=== PATIENT | female | born 1940 | race Caucasian/White ===

== ENCOUNTER → 2017-06-27 | Outpatient (REF) | payer MEDICARE ==
[~2017-06-27] MED LIST: AMLO1TAB37 PO; ASPI81TA85 PO; ATOR1TAB21 PO; CALCTAB75 PO; CODE30TA3 PO; COUM2.5T17 PO; FURO40TA2 PO; LOTE10TA11 PO; LYRI75CA PO; MELO7.5T7 PO; META1TAB19 PO; METF500T13 PO; METO100T5 PO; PERC5TAB12 PO; TYLE325T5 PO; VITA200028 PO
[2017-06-27 11:29] LABS: ALBUMIN 3.8 GM/DL (3.2-5.2); ALBUMIN/GLOBULIN RATIO 1.09 (1.00-1.93); ALKALINE PHOSPHATASE 71 U/L (45-117); ALT/SGPT 24 U/L (12-78); ANION GAP 9 MEQ/L (8-16); AST/SGOT 13 U/L (15-37); BILIRUBIN,TOTAL 0.4 MG/DL (0.2-1.0); BLOOD UREA NITROGEN 15 MG/DL (7-18); CALCIUM LEVEL 9.1 MG/DL (8.8-10.2); CARBON DIOXIDE LEVEL 31 MEQ/L (21-32); CHLORIDE LEVEL 103 MEQ/L (98-107); CHOLESTEROL LEVEL 139 MG/DL (<200); CREATININE FOR GFR 0.78 MG/DL (0.55-1.02); GLOMERULAR FILTRATION RATE > 60.0 (>39); GLUCOSE, FASTING 94 MG/DL (83-110); POTASSIUM SERUM 4.5 MEQ/L (3.5-5.1); SODIUM LEVEL 143 MEQ/L (136-145); TOTAL PROTEIN 7.3 GM/DL (6.4-8.2); TRIGLYCERIDES LEVEL 246 MG/DL (<150)
== END ==
LOC: M SFHCPLAZ 09:22
PROVIDERS: ATTEND Nurse Practitioner Family
DX: E55.9 Vitamin D deficiency, unspecified (principal); I10 Essential (primary) hypertension; E11.9 Type 2 diabetes mellitus without complications; E78.2 Mixed hyperlipidemia

== ENCOUNTER 2017-09-28 11:03 | Emergency (ER) | payer MEDICARE ==
[~2017-09-28] VITALS: Ht 152.4 cm; Wt 81.8 kg
[2017-09-28] MEDS ORDERED: ALEV220C2 PO (11:13)
[2017-09-28] MEDS ORDERED: VITA20008 PO (11:13)
[2017-09-28 12:41] LABS: BASO # 0.1 10^3/uL (0.0-0.2); BASO % 0.4 % (0.0-1.0); EOS # 0.2 10^3/uL (0.0-0.50); EOS % 1.7 % (0.0-3.0); IMMATURE GRANULOCYTE % 0.4 % (0-0); LYMPH # 1.8 10^3/uL (1.5-4.5); LYMPH % 13.1 % (24.0-44.0); MEAN CORPUSCULAR HEMOGLOBIN 30.8 pg (27.0-33.0); MEAN CORPUSCULAR HGB CONC 33.2 g/dl (32.0-36.5); MEAN CORPUSCULAR VOLUME 92.8 fl (80.0-96.0); MONO # 1.2 10^3/uL (0.0-0.8); MONO % 8.6 % (0.0-5.0); NEUTROPHILS # 10.5 10^3/uL (1.8-7.7); NEUTROPHILS % 75.8 % (36.0-66.0); PLATELET COUNT, AUTOMATED 260 10^3/uL (150-450); RED CELL DISTRIBUTION WIDTH 13.3 % (11.5-14.5); WHITE BLOOD COUNT 13.8 10^3/uL (4.0-10.0)
[2017-09-28 12:57] LABS: INR 0.96
--- NOTE | 2017-09-28 13:00 | REP ---
Clinical: Postmenopausal bleeding. Technique: Transabdominal pelvic ultrasound. Findings: Anteverted uterus measures 7.5 x 2.6 x 3.4 cm the endometrial complex measures 2.8 mm and no discrete uterine or endometrial abnormalities identified. The ovaries are not visualized. No pelvic fluid or adnexal mass lesion. Impression: Limited transabdominal pelvic ultrasound without obvious abnormality. Signed by Cristopher Pino MD 09/28/2017 12:52 P
[2017-09-28 13:17] LABS: ALKALINE PHOSPHATASE 74 U/L (45-117); ALT/SGPT 19 U/L (12-78); ANION GAP 7 MEQ/L (8-16); AST/SGOT 12 U/L (7-37); BILIRUBIN,DIRECT 0.1 MG/DL (0.0-0.2); BILIRUBIN,TOTAL 0.4 MG/DL (0.2-1.0); BLOOD UREA NITROGEN 23 MG/DL (7-18); CALCIUM LEVEL 9.1 MG/DL (8.8-10.2); CARBON DIOXIDE LEVEL 29 MEQ/L (21-32); CHLORIDE LEVEL 104 MEQ/L (98-107); CREATININE FOR GFR 0.83 MG/DL (0.55-1.02); GLOMERULAR FILTRATION RATE > 60.0 (>39); GLUCOSE, FASTING 91 MG/DL (83-110); POTASSIUM SERUM 4.1 MEQ/L (3.5-5.1); SODIUM LEVEL 140 MEQ/L (136-145)
[2017-09-28 14:16] VITALS: BP 157/67
[2017-09-28] MEDS ORDERED: CIPR-249 PO (14:17)
[2017-10-03] MEDS ORDERED: BENA20TA8 PO (09:41)
== END 2017-09-28 14:28 | disposition home or self-care (01) ==
LOC: M ED 11:03
DX: N39.0 Urinary tract infection, site not specified (principal); R31.9 Hematuria, unspecified; N95.0 Postmenopausal bleeding; E11.9 Type 2 diabetes mellitus without complications; I10 Essential (primary) hypertension; E78.5 Hyperlipidemia, unspecified; M54.9 Dorsalgia, unspecified; M25.559 Pain in unspecified hip; Z79.899 Other long term (current) drug therapy; Z79.82 Long term (current) use of aspirin; Z88.2 Allergy status to sulfonamides; Z79.84 Long term (current) use of oral hypoglycemic drugs

== ENCOUNTER → 2017-10-03 | Outpatient (CLI) | payer MEDICARE ==
[~2017-10-03] MED LIST changes: +ALEV220C2 PO; +BENA20TA8 PO; +CIPR-249 PO; +VITA20008 PO
[2017-10-03 10:39] LABS: MEAN CORPUSCULAR HGB CONC 32.9 g/dl (32.0-36.5); MEAN CORPUSCULAR VOLUME 91.2 fl (80.0-96.0); PLATELET COUNT, AUTOMATED 285 10^3/uL (150-450); RED CELL DISTRIBUTION WIDTH 13.2 % (11.5-14.5); WHITE BLOOD COUNT 7.7 10^3/uL (4.0-10.0)
[2017-10-03 10:56] LABS: INR 0.99
[2017-10-03 11:01] LABS: ALBUMIN 4.1 GM/DL (3.2-5.2); ALBUMIN/GLOBULIN RATIO 1.14 (1.00-1.93); ALKALINE PHOSPHATASE 76 U/L (45-117); ALT/SGPT 19 U/L (12-78); ANION GAP 8 MEQ/L (8-16); AST/SGOT 13 U/L (7-37); BILIRUBIN,TOTAL 0.4 MG/DL (0.2-1.0); BLOOD UREA NITROGEN 21 MG/DL (7-18); CALCIUM LEVEL 8.9 MG/DL (8.8-10.2); CARBON DIOXIDE LEVEL 29 MEQ/L (21-32); CHLORIDE LEVEL 101 MEQ/L (98-107); CREATININE FOR GFR 0.93 MG/DL (0.55-1.02); GLOMERULAR FILTRATION RATE > 60.0 (>39); GLUCOSE, FASTING 93 MG/DL (83-110); POTASSIUM SERUM 4.5 MEQ/L (3.5-5.1); SODIUM LEVEL 138 MEQ/L (136-145); TOTAL PROTEIN 7.7 GM/DL (6.4-8.2)
[2017-10-03 11:35] LABS: ERYTHROCYTE SEDIMENTATION RATE 29 mm/hr (0-30)
--- NOTE | 2017-10-03 13:43 | REP ---
PA and lateral chest: Comparison is 11/30/2015. There is chronic interstitial coarsening compatible with chronic interstitial lung disease, unchanged. There are no acute infiltrates or effusions. There are no masses. Lung dvaid otherwise clear. Cardiac size is upper normal, unchanged. The rajendra, mediastinum, and bony thorax are unchanged. Impression: There are no acute cardiopulmonary findings. There is chronic interstitial coarsening compatible with chronic lung disease. No significant interval change. Signed by Chino Hernandez MD 10/03/2017 01:34 P
--- NOTE | 2017-10-04 09:19 | ECGEPIP ---
Stationary ECG Study [facility] Test Date: 2017-10-03 Pat Name: ANALILIA CHUA Department: Room: - Gender: F Lead Applier: YELENA : 1940 Requested By: Umang Salcedo Order Number: [id number] Reading MD: Kevin Cantor Measurements Intervals [place] Rate: 68 P: 24 [place]: 197 QRS: -2 QRSD: 93 T: 16 QT: 387 QTc: 412 Interpretive Statements Normal sinus rhythm. Prominent voltage in aVL suggestive of Left ventricular hypertrophy by Fabian criteria No change from 11/30/15 Electronically Signed On 10-04-2017 9:19:15 EST by Kevin Cantor
== END ==
LOC: M ADMPAT 09:27
PROVIDERS: ATTEND Orthopaedic Surgery
DX: Z01.818 Encounter for other preprocedural examination (principal); M17.11 Unilateral primary osteoarthritis, right knee; Z79.899 Other long term (current) drug therapy

== ENCOUNTER 2017-10-16 10:43 | Inpatient (IN) | payer MEDICARE ==
[2017-10-03 10:07] VITALS: BP 131/88
[~2017-10-16] VITALS: Ht 152.4 cm; Wt 80.3 kg
[2017-10-16] MEDS ORDERED: LR 1,000 ML IV ONE (11:00)
[2017-10-16] MEDS ORDERED: ACETAMINOPHEN 500 MG TAB PO ONE ×2 (11:00)
[2017-10-16] MEDS ORDERED: fentaNYL 100 MCG/2 ML INJECTION (J3010) As Ordered ONE (13:02)
[2017-10-16] MEDS ORDERED: MIDAZOLAM INJ 2 MG/2 ML VIAL (J2250) As Ordered ONE ×2 (13:02→15:01)
[2017-10-16] MEDS: fentaNYL 100 MCG/2 ML INJECTION (J3010) IV SCH ×2 (13:14→13:17)
[2017-10-16] MEDS: MIDAZOLAM INJ 2 MG/2 ML VIAL (J2250) IV SCH ×2 (13:14→13:17)
[2017-10-16] MEDS ORDERED: ceFAZolin 1GM INJ (J0690 PER 500MG) As Ordered ONE (13:25)
[2017-10-16] MEDS ORDERED: TRANEXAMIC ACID 100 MG/ML 10ML VIAL As Ordered ONE (13:25)
[2017-10-16] MEDS ORDERED: EPINEPHrine INJ 1 MG/ML 1ML AMP As Ordered ONE (13:25)
[2017-10-16] MEDS ORDERED: BUPIVACAINE LIPOSOME/PF 1.3% 20 ML VIAL (13.3MG/ML)(EXPAREL) As Ordered ONE (13:26)
[2017-10-16] MEDS ORDERED: LIDOCAINE 2% INJ 100 MG/5 ML SDV (FOR ANES.) As Ordered ONE (15:01)
[2017-10-16] MEDS ORDERED: PROPOFOL 200 MG/20 ML VIAL As Ordered ONE (15:01)
[2017-10-16] MEDS ORDERED: MORPHINE 1MG/ML IN 0.9% NACL 100ML IV BAG As Ordered ONE (15:45)
[2017-10-16] MEDS ORDERED: LR 1,000 ML IV SCH (16:30)
[2017-10-16] MEDS ORDERED: EPIDURAL/PCA KEYS XX PRN (16:30)
[2017-10-16] MEDS ORDERED: fentaNYL 100 MCG/2 ML INJECTION (J3010) IV PRN (16:30)
[2017-10-16] MEDS ORDERED: NALBUPHINE HCL 10 MG/ML AMP (J2300) IV PRN (16:30)
[2017-10-16] MEDS ORDERED: ONDANSETRON 4MG/2ML VIAL (J2405) IV PRN ×2 (16:30)
[2017-10-16] MEDS ORDERED: NALOXONE INJ 0.4 MG/1 ML VIAL (J2310) IV PRN (16:30)
[2017-10-16] MEDS ORDERED: FLEET ENEMA PR PRN (16:30)
[2017-10-16] MEDS ORDERED: MORPHINE 1MG/ML IN 0.9% NACL 100ML IV BAG IV PRN (16:30)
[2017-10-16] MEDS ORDERED: diphenhydrAMINE INJ 50MG/ML VIAL (J1200) IV PRN (16:30)
[2017-10-16 17:00] VITALS: BP 192/82
[2017-10-16] MEDS ORDERED: WARFARIN SOD 5 MG TAB PO ONE (17:00)
[2017-10-16 17:30] VITALS: BP 190/83
[2017-10-16] MEDS ORDERED: GLUCOSE 4 GM CHEW TABLET PO PRN (17:30)
[2017-10-16] MEDS ORDERED: DEXTROSE 50% 50 ML SYRINGE IV PRN (17:30)
[2017-10-16] MEDS ORDERED: GLUCAGON FOR INJ 1 MG VIAL (J1610) SC PRN (17:30)
[2017-10-16] MEDS: HumaLOG INSULIN (NovoLOG) PER UNIT SC SCH (17:30)
[2017-10-16 17:51] LABS: MEAN CORPUSCULAR HEMOGLOBIN 29.9 pg (27.0-33.0); MEAN CORPUSCULAR HGB CONC 32.4 g/dl (32.0-36.5); MEAN CORPUSCULAR VOLUME 92.3 fl (80.0-96.0); PLATELET COUNT, AUTOMATED 260 10^3/uL (150-450); RED CELL DISTRIBUTION WIDTH 13.6 % (11.5-14.5); WHITE BLOOD COUNT 9.5 10^3/uL (4.0-10.0)
--- NOTE | 2017-10-16 18:01 | CR.PDOC ---
[facility] Consultation Consultation Hospitalist Consult Note Date of Consultation: 10/16/2017 Reason for Consultation: Medical management of chronic medical issues Referring Provider: Dr. Matias Lowe PCP: Jennifer Kim & Dr. Gisela Kulkarni HISTORY OF PRESENT ILLNESS: Ms. Painting is a 77-year-old female who underwent an elective total right knee surgery earlier today. We have been consulted in regard to her chronic medical conditions as listed below. ALLERGIES: Sulfa antibiotics PAST MEDICAL HISTORY: Type 2 diabetes mellitus Osteoarthritis Rheumatoid arthritis Pulmonary fibrosis Fatty liver Left lung nodules 2 Hypertension Hyperlipidemia PAST SURGICAL HISTORY: Right hip replacement 2016 Total right knee 2017 (today) SOCIAL HISTORY: She does not smoke, drink, or use recreational drugs. FAMILY HISTORY: Her father had emphysema and lung damage from World War II gas exposure. Her mother had a heart attack, high blood pressure, and diabetes. She does have 1 sibling with Parkinson's, as well as siblings who had heart attack and COPD. she does have an uncle who had a stroke, and a niece who had breast cancer in her 60s. REVIEW OF SYSTEMS: Constitutional: Patient denies fevers, chills, night sweats, recent weight gain/ loss. HEENT: Patient denies blurred or double vision, transient visual disturbances, postnasal drip, epistaxis, sore throat, difficulty chewing or swallowing food. Cardiovascular: Patient denies chest discomfort/pain, palpitations, exertional dyspnea, orthopnea, edema of the extremities, claudication. Respiratory: Patient denies dyspnea, wheezing, cough, hemoptysis, sputum production. Gastrointestinal: Patient denies nausea, vomiting, diarrhea, constipation, abdominal pain, melena, hematochezia, hematemesis, jaundice. Musculoskeletal: Patient denies joint stiffness, pain, swelling Endocrine: Patient denies polyuria, polydipsia, polyphagia. PHYSICAL EXAMINATION: General: Awake, alert, oriented. She is in a pleasant mood. She is not in any pain at this time. HEENT: Head normocephalic atraumatic, pupils equally reactive to light and accommodation, conjunctiva are pink, sclera are nonicteric, buccal mucosa is pink and moist with no lesions in the oropharynx. Hearing is grossly intact to conversation. Respiratory: Clear to auscultation bilaterally with no wheezes, rales, or rhonchi. Cardiovascular: Regular rate and rhythm, with no rubs, gallops, or murmur. Abdomen: Soft, nontender, nondistended, no hepatosplenomegaly appreciated. Bowel sounds present. Extremities: 2+ pulses in the radial and dorsalis pedis bilaterally. No evidence of clubbing or cyanosis. ASSESSMENT: 1. s/p Right total knee replacement 2. Type 2 diabetes mellitus 3. Rheumatoid arthritis 4. Pulmonary fibrosis 5. Hypertension 6. Hyperlipidemia 7. DVT prophylaxis per recommendations from Ortho (warfarin) PLAN: During her inpatient hospitalization we will discontinue her metformin and continue with sliding scale insulin before meals and at bedtime. Her once daily Lasix and will be held for now, but we will continue with her usual home dose of amlodipine, atorvastatin, Benzapril, and metoprolol succinate. The patient does not wish to take her calcium or vitamin D at this time as it causes her an upset stomach, therefore these will be held as well. My preceptor for this patient encounter was physically present in the building during the encounter and was fully available. As needed, all aspects of the patient interview, examination, medical decision making process, and medical care plan development were reviewed and approved by the preceptor. Preceptor is aware and concurs with the plan as stated in the body of this note and will attest to such by his/her cosignature. Vital Signs/I&O Vital Signs Date Time Temp Pulse Resp B/P (MAP) Pulse Ox O2 Delivery O2 Flow Rate FiO2 10/16/17 16:30 96.6 53 16 145/67 (93) 98 Nasal Cannula 2 I&O- Last 24 Hours up to 6 AM 10/17/17 06:00 Intake Total 1100 ml Output Total 250 ml Balance 850 ml Laboratory Data CBC/BMP Laboratory Tests 10/16/17 11:11 Allergies Coded Allergies: Sulfa Antibiotics (Verified Allergy, Unknown, 10/16/17) Home Medications Scheduled (Aleve) 220 Mg Cap, 220 MG PO BID, (Reported) Atorvastatin Calcium (Atorvastatin Calcium) 20 Mg Tab, 20 MG PO QHS, (Reported) Benazepril HCl (Benazepril HCl) 20 Mg Tab, 20 MG PO QAM, (Reported) Calcium/Vitamin D (Calcium 500 +D 500-400 mg-Unit) 1 Tab Tab, 1 TAB PO DAILY, ( Reported) Cholecalciferol (Vitamin D3) 2,000 Unit Tab, 2,000 UNIT PO Q2D, (Reported) Ciprofloxacin HCl (Cipro) 500 Mg Tab, 500 MG PO BID, #14 Furosemide (Furosemide) 40 Mg Tab, 40 MG PO DAILY, (Reported) Metformin Hydrochloride (Metformin HCl) 500 Mg Tab, 1,000 MG PO BID, (Reported) OPAL SINGH DO Oct 16, 2017 16:47 ALLAN LOMELI MD Oct 16, 2017 18:26
[2017-10-16 18:23] LABS: ANION GAP 9 MEQ/L (8-16); BLOOD UREA NITROGEN 19 MG/DL (7-18); CALCIUM LEVEL 8.5 MG/DL (8.8-10.2); CARBON DIOXIDE LEVEL 25 MEQ/L (21-32); CHLORIDE LEVEL 108 MEQ/L (98-107); CHOLESTEROL LEVEL 181 MG/DL (<200); CREATININE FOR GFR 0.74 MG/DL (0.55-1.02); GLOMERULAR FILTRATION RATE > 60.0 (>39); GLUCOSE, FASTING 110 MG/DL (83-110); MAGNESIUM LEVEL 2.1 MG/DL (1.8-2.4); POTASSIUM SERUM 4.9 MEQ/L (3.5-5.1); SODIUM LEVEL 142 MEQ/L (136-145); TRIGLYCERIDES LEVEL 145 MG/DL (<150)
[2017-10-16] MEDS ORDERED: AMLO5TAB2 PO (18:27)
[2017-10-16] MEDS: amLODIPine 5 MG TAB PO SCH (18:27)
[2017-10-16] MEDS: LR 1,000 ML IV SCH (18:27)
[2017-10-16] MEDS ORDERED: METO1TAB33 PO (18:28)
[2017-10-16 18:30] VITALS: BP 184/79
[2017-10-16 19:30] VITALS: BP 163/80
[2017-10-16] MEDS: ATORVASTATIN 20 MG TAB PO SCH (20:19)
[2017-10-16 20:30] VITALS: BP 153/83
[2017-10-16] MEDS ORDERED: HumaLOG INSULIN (NovoLOG) PER UNIT SC SCH (21:00)
[2017-10-16 21:30] VITALS: BP 142/70
[2017-10-17] VITALS (7 sets, daily range): BP systolic 114–188; BP diastolic 58–78; O2SAT 96
[2017-10-17] MEDS: LR 1,000 ML IV SCH (05:00)
[2017-10-17] MEDS ORDERED: PERCOCET 5MG/325MG TAB PO PRN (06:45)
[2017-10-17 06:55] LABS: MEAN CORPUSCULAR HGB CONC 32.9 g/dl (32.0-36.5); PLATELET COUNT, AUTOMATED 264 10^3/uL (150-450); RED CELL DISTRIBUTION WIDTH 13.6 % (11.5-14.5); WHITE BLOOD COUNT 17.6 10^3/uL (4.0-10.0)
[2017-10-17 07:07] LABS: INR 1.15
[2017-10-17] MEDS: HumaLOG INSULIN (NovoLOG) PER UNIT SC SCH (07:26)
[2017-10-17 07:29] LABS: ANION GAP 10 MEQ/L (8-16); BLOOD UREA NITROGEN 20 MG/DL (7-18); CALCIUM LEVEL 8.5 MG/DL (8.8-10.2); CARBON DIOXIDE LEVEL 23 MEQ/L (21-32); CHLORIDE LEVEL 105 MEQ/L (98-107); CREATININE FOR GFR 0.82 MG/DL (0.55-1.02); GLOMERULAR FILTRATION RATE > 60.0 (>39); GLUCOSE, FASTING 147 MG/DL (83-110); POTASSIUM SERUM 4.6 MEQ/L (3.5-5.1); SODIUM LEVEL 138 MEQ/L (136-145)
[2017-10-17] MEDS: MIRALAX *UNIT DOSE* 17GM PACKET PO SCH (08:56)
[2017-10-17] MEDS: SENOKOT S TAB PO SCH ×2 (08:56→22:25)
[2017-10-17] MEDS: BENAZEPRIL 20 MG TAB PO SCH (08:56)
[2017-10-17] MEDS: MOM 30ML SUSPENSION UDC PO SCH (08:56)
[2017-10-17] MEDS: PERCOCET 5MG/325MG TAB PO PRN ×2 (08:57→16:02)
[2017-10-17] MEDS: amLODIPine 5 MG TAB PO SCH (08:57)
[2017-10-17] MEDS: METOPROLOL SUCC (TopROL XL) 100MG *XL* TAB PO SCH (08:58)
[2017-10-17] MEDS ORDERED: METOPROLOL TARTRATE 100 MG TAB PO SCH (09:00)
--- NOTE | 2017-10-17 09:31 | REP ---
RIGHT KNEE, TWO VIEWS: Two views of the right knee are performed. There is a total knee prosthesis which appears to be in good position. The structures are well aligned. Metallic skin joan are seen anteriorly. Signed by Chino Quinn MD 10/17/2017 05:21 P
--- NOTE | 2017-10-17 11:44 | RO ---
DATE OF PROCEDURE: 10/16/2017 PREPROCEDURE DIAGNOSIS: Right knee degenerative arthritis. POSTPROCEDURE DIAGNOSIS: Right knee degenerative arthritis. PROCEDURE: Right total knee arthroplasty using size 2.5 femoral component, size 2.5 tibial tray, with a 10 mm rotating plate form polyurethane insert and a 32 mm polyurethane button. Prostheses made by [employer], It is a PFC knee. All the components were cemented. SURGEON: Dr. Umang Lowe ELECTRICAL SYSTEM SPECIALIST: Konstantin Dc PA-C ANESTHESIA: Spinal with right femoral nerve block. SPECIMENS: Joint surfaces. ESTIMATED BLOOD LOSS: Less than 20 mL. TOURNIQUET TIME: 48 minutes. DESCRIPTION OF PROCEDURE: Antibiotics were given intravenously preoperatively then a successful right femoral nerve block and then spinal anesthetic was induced. A tourniquet was placed on the right upper thigh and not inflated. The right lower extremity was then carefully prepped in the usual sterile fashion and after an appropriate time out, was elevated and the tourniquet inflated to 150 mmHg. A longitudinal incision was made for a medial parapatellar approach in the knee. Bovie cautery was used to coagulate the crossing vessels. A subperiosteal dissection from the proximal medial and tibial plateau was performed and the patella was everted and the knee was flexed. The ACL was debrided. A drill placed down the center of the femoral canal, followed by the distal femoral cutting jig set at 5 degree valgus cut at 10 mm resection level for a right knee. The block was pinned into position. Distal femoral cut performed. AP sizing jig measured for a 2.5 sized femoral component. The 30 degree external rotation block was pinned in position followed by the 4-in-1 block and then the anterior and posterior chamfer cuts performed taking great care to protect the surrounding soft tissues. We exposed the proximal tibia. Used the extramedullary alignment jig to estimate being parallel to the mechanical axis referencing off the medial tibial condyle at 4 mm resection level. The block was pinned into position. Secondary check with the extramedullary garth confirmed they appeared to be in parallel to the mechanical axis. A proximal tibial osteotomy was then performed. Laminar spa coordinator was placed medially and then we performed a completion lateral meniscectomy debriding the posterior lateral osteophytes. Then placed the laminar spa coordinator laterally and performed a completion medial meniscectomy breading from the posteromedial osteophytes. The spacer block was quite tight both in flexion and extension at 10 mm. Thus, I elected to take an additional 2 mm off the proximal tibia by replacing the jig and performing the cut and removing excess bone debris and then irrigating copiously. Then the spacer bloc fit nicely with good symmetry and flexion/extension gaps both with varus and valgus, stress testing in flexion and in extension. We then exposed the proximal tibia size for a 2.5 tray, which was pinned into position followed by the reamer and broach, followed by the trial polyethylene and trial femoral component which fit nicely. I brought the knee into extension and everted the patella. I performed the patellar osteotomy size for a 32 button. The lug holes were drilled. The patella component trial was placed and the patellofemoral tracking was anatomic. We then drilled the lug holes for the femur, removed all the trial components. Exparel was injected into the periosteal and pericapsular tissues at this point. Then Mr. Mg mixed the cement on the back table as I prepared the bony surfaces for cementing with copious amount of pulsatile lavage irrigant solution. He was also critical to the success of the procedure by helping to close the wound and help to manipulate the knee and apply appropriate soft tissue retraction so that I could perform the operation smoothly and efficiently. After all the bony surfaces were cleared thoroughly and debrided, irrigated and dried, we cemented the tibial tray , removed excess cement, placed the polyethylene and cemented the femoral component, removed excess cement and brought the knee into extension and then everted the patella and cemented the patellar button and held it with a clamp till the cement hardened with the knee in extension. We copiously pulsatile lavaged and irrigated out the knee joint as we awaited for the cement to harden. Then applied tranexamic acid and began closing the arthrotomy apex with two #1 PDS sutures, the medial parapatellar areas was closed with interrupted #1-0 PDS suture, then a double-arm #1 Stratafix was used to run the capsule. Then the tourniquet was released. We copiously irrigated again and then closed the deep subdermal tissues with interrupted #2-0 PDS sutures. The skin was closed with joan covered by Adaptic, dry sterile bulky dressing. Then she was transferred to the recovery room in stable condition. There were no intraoperative complications.
--- NOTE | 2017-10-17 11:53 | IPNPDOC ---
Subjective Date Seen The patient was seen on 10/17/17. Subjective Chief Complaint/HPI The patient is a 77-year-old female admitted with a reason for visit of Right Knee Arthritis. Constitutional: Denies: Chills, Malaise, Night Sweats ENT: Denies: Head Aches, Dysphagia Skin: Denies: Rash Pulmonary: Denies: Dyspnea, Cough, Pleuritic Chest Pain Cardiovascular: Denies: Chest Pain, Palpitations Gastrointestinal: Denies: Nausea, Vomiting, Abdominal Pain Genitourinary: Denies: Dysuria Neurological: Denies: Weakness, Numbness, Change in speech Psych: Reports: Mood Normal Objective Physical Examination General Exam: Positive: Alert, Cooperative Eye Exam: Positive: PERRLA Neck Exam: Negative: thyromegaly, Lymphadenopathy Chest Exam: Positive: Clear to auscultation, Normal air movement, Negative: Rales, Rhonchi Heart Exam: Negative: Murmurs Abdomen Exam: Positive: Normal bowel sounds Extremity Exam: Negative: Clubbing, Cyanosis Skin Exam: Positive: Nl turgor and temperature Psych Exam: Positive: Mental status NL Assessment /Plan Problems (1) HTN (hypertension) Status: Chronic Response to Treatment: Stable Problem Text: she is back on her usual pre hospital meds, except for furosemide 40mg daily. she will likely need to have this agent added at discharge. (2) Diabetes mellitus, type 2 Status: Chronic Response to Treatment: Stable Problem Text: patient refusing SS coverage. so will d/c fingersticks and SS coverage and resume usual metformin. renal function is normal and she is taking po reliably (3) Status post total right knee replacement Status: Acute Response to Treatment: Stable Problem Text: management per Ortho Plan/VTE VTE Prophylaxis Ordered?: Yes Plan Anticipated Discharge: Home VS, I&O, 24H, Fishbone Vital Signs/I&O Vital Signs Date Time Temp Pulse Resp B/P (MAP) Pulse Ox O2 Delivery O2 Flow Rate FiO2 10/17/17 10:18 96 Room Air 10/17/17 10:00 97.9 63 17 167/78 (107) 10/17/17 06:00 2.0 I&O- Last 24 Hours up to 6 AM 10/18/17 06:00 Intake Total 400 ml Balance 400 ml Laboratory Data 24H LABS Laboratory Tests 2 10/16/17 17:35: Nucleated Red Blood Cells % (auto) 0.0, Anion Gap 9, Glomerular Filtration Rate > 60.0, Calcium Level 8.5L, Magnesium Level 2.1, Triglycerides Level 145, LDL Cholesterol 109.0H, Total Cholesterol 181, Non-HDL Cholesterol (LDL + VLDL) 138 , Total HDL Cholesterol 43, Cholesterol/HDL Ratio 4.209, Thyroid Stimulating Hormone (TSH) 0.603 10/16/17 20:40: Bedside Glucose (Misc Panel) 217H 10/17/17 06:44: Nucleated Red Blood Cells % (auto) 0.0, Anion Gap 10, Glomerular Filtration Rate > 60.0, Calcium Level 8.5L, Prothrombin Time 14.9H, Prothromb Time International Ratio 1.15, Estimated Mean Plasma Glucose 120H, Hemoglobin A1c 5.8 , Blood Urea Nitrogen 20H, Creatinine 0.82, Sodium Level 138, Potassium Level 4.6, Chloride Level 105, Carbon Dioxide Level 23 CBC/BMP Laboratory Tests 10/16/17 17:35 Red Blood Count 4.65, Mean Corpuscular Volume 92.3, Mean Corpuscular Hemoglobin 29.9, Mean Corpuscular Hemoglobin Concent 32.4, Red Cell Distribution Width 13.6 10/17/17 06:44 Red Blood Count 4.34, Mean Corpuscular Volume 91.0, Mean Corpuscular Hemoglobin 30.0, Mean Corpuscular Hemoglobin Concent 32.9, Red Cell Distribution Width 13.6 , Calcium Level 8.5 L Marco A Mcmahan MD Oct 17, 2017 11:53
[2017-10-17] MEDS: metFORMIN (GLUCOPHAGE) 1000 MG TABLET PO SCH ×2 (12:10→18:00)
[2017-10-17] MEDS ORDERED: WARFARIN SOD 5 MG TAB PO ONE (17:00)
[2017-10-17] MEDS: ONDANSETRON 4 MG TAB (S0181) PO PRN (20:54)
[2017-10-17] MEDS: ATORVASTATIN 20 MG TAB PO SCH (21:00)
[2017-10-17] MEDS: ACETAMINOPHEN TAB 650MG DOSE (2X325MG) PO PRN (22:25)
[2017-10-18 00:31] VITALS: O2SAT 93
[2017-10-18] MEDS: ACETAMINOPHEN TAB 650MG DOSE (2X325MG) PO PRN (01:59)
[2017-10-18 02:00] VITALS: BP 176/83
[2017-10-18 06:00] VITALS: BP 152/89
[2017-10-18 06:57] LABS: BASO % 0.2 % (0.0-1.0); EOS % 0.3 % (0.0-3.0); IMMATURE GRANULOCYTE % 0.5 % (0-0); LYMPH # 1.5 10^3/uL (1.5-4.5); LYMPH % 11.3 % (24.0-44.0); MEAN CORPUSCULAR HEMOGLOBIN 29.8 pg (27.0-33.0); MEAN CORPUSCULAR HGB CONC 32.8 g/dl (32.0-36.5); MEAN CORPUSCULAR VOLUME 90.8 fl (80.0-96.0); MONO # 1.8 10^3/uL (0.0-0.8); MONO % 13.9 % (0.0-5.0); NEUTROPHILS # 9.6 10^3/uL (1.8-7.7); NEUTROPHILS % 73.8 % (36.0-66.0); PLATELET COUNT, AUTOMATED 250 10^3/uL (150-450); WHITE BLOOD COUNT 13.1 10^3/uL (4.0-10.0)
[2017-10-18] MEDS: ONDANSETRON 4 MG TAB (S0181) PO PRN ×2 (07:04→17:43)
[2017-10-18] MEDS: traMADol 50 MG TAB PO PRN ×3 (07:05→20:30)
[2017-10-18 07:07] LABS: ANION GAP 9 MEQ/L (8-16); BLOOD UREA NITROGEN 13 MG/DL (7-18); CALCIUM LEVEL 8.9 MG/DL (8.8-10.2); CARBON DIOXIDE LEVEL 28 MEQ/L (21-32); CHLORIDE LEVEL 101 MEQ/L (98-107); CREATININE FOR GFR 0.76 MG/DL (0.55-1.02); GLOMERULAR FILTRATION RATE > 60.0 (>39); GLUCOSE, FASTING 123 MG/DL (83-110); POTASSIUM SERUM 4.3 MEQ/L (3.5-5.1); SODIUM LEVEL 138 MEQ/L (136-145)
[2017-10-18 07:08] LABS: INR 1.37
[2017-10-18] MEDS ORDERED: dexameTHASONE 10 MG/1 ML VIAL PRES.FREE (J1100) ONE (07:33)
[2017-10-18] MEDS ORDERED: ROPIvacaine 0.5% 30 ML INJECTION (J2795 PER 1MG) ONE (07:33)
[2017-10-18] MEDS ORDERED: TRAM50TA2 PO (08:52)
[2017-10-18] MEDS ORDERED: COUM2.5T17 PO (08:52)
[2017-10-18] MEDS ORDERED: VITAMIN D 1,000 INTERNATIONAL UNITS TABLET PO SCH (09:00)
[2017-10-18] MEDS: MOM 30ML SUSPENSION UDC PO SCH (10:37)
[2017-10-18] MEDS: MIRALAX *UNIT DOSE* 17GM PACKET PO SCH (10:38)
[2017-10-18] MEDS: METOPROLOL SUCC (TopROL XL) 100MG *XL* TAB PO SCH (10:39)
[2017-10-18] MEDS: amLODIPine 5 MG TAB PO SCH (10:39)
[2017-10-18] MEDS: metFORMIN (GLUCOPHAGE) 1000 MG TABLET PO SCH ×2 (10:39→17:43)
[2017-10-18] MEDS: BENAZEPRIL 20 MG TAB PO SCH (10:39)
[2017-10-18] MEDS: SENOKOT S TAB PO SCH ×2 (10:39→20:29)
--- NOTE | 2017-10-18 11:07 | IPNPDOC ---
Subjective Date Seen The patient was seen on 10/18/17. Subjective Chief Complaint/HPI The patient is a 77-year-old female admitted with a reason for visit of Right Knee Arthritis. Events since last encounter s/p pain in right knee. pain medications ordered prn by ortho service. denies other c/o Constitutional: Denies: Chills, Fever, Night Sweats Skin: Denies: Rash, Lesions, Breakdown Pulmonary: Denies: Dyspnea, Cough Cardiovascular: Denies: Chest Pain, Palpitations, Orthopnea, Paroxysmal Noc. Dyspnea, Lt Headedness Gastrointestinal: Denies: Nausea, Vomiting, Abdominal Pain, Diarrhea, Constipation, Melena, Hematochezia, Other Symptoms Genitourinary: Denies: Dysuria, Frequency, Incontinence, Hematuria, Retention, Other Symptoms Objective Physical Examination General Exam: Positive: Alert, Cooperative Eye Exam: Positive: PERRLA Neck Exam: Negative: thyromegaly, Lymphadenopathy Chest Exam: Positive: Clear to auscultation, Normal air movement, Negative: Rales, Rhonchi Heart Exam: Negative: Murmurs Abdomen Exam: Positive: Normal bowel sounds Extremity Exam: Negative: Clubbing, Cyanosis Skin Exam: Positive: Nl turgor and temperature Psych Exam: Positive: Mental status NL Assessment /Plan Problems (1) HTN (hypertension) Status: Chronic Response to Treatment: Stable Problem Text: : elevated BP noted. may be related to pain. Furosemide 40 mg daily restarted. monitor. she is back on her usual pre hospital meds, except for furosemide 40mg daily. she will likely need to have this agent added at discharge. (2) Diabetes mellitus, type 2 Status: Chronic Response to Treatment: Stable Problem Text: patient refusing SS coverage. so will d/c fingersticks and SS coverage and resume usual metformin. renal function is normal and she is taking po reliably (3) Status post total right knee replacement Status: Acute Response to Treatment: Stable Problem Text: management per Ortho Plan/VTE VTE Prophylaxis Ordered?: Yes Plan Anticipated Discharge: Home VS, I&O, 24H, Fishbone Vital Signs/I&O Vital Signs Date Time Temp Pulse Resp B/P (MAP) Pulse Ox O2 Delivery O2 Flow Rate FiO2 10/18/17 10:39 72 10/18/17 10:39 170/81 12/20/17 10:38 18 10/18/17 07:35 Room Air 10/18/17 06:00 99.4 98 10/18/17 00:31 1.0 I&O- Last 24 Hours up to 6 AM 10/18/17 06:00 Intake Total 820 ml Output Total 1150 ml Balance -330 ml Laboratory Data 24H LABS Laboratory Tests 2 10/18/17 06:35: Immature Granulocyte % (Auto) 0.5H, White Blood Count 13.1H, Red Blood Count 4.23, Hemoglobin 12.6, Hematocrit 38.4, Mean Corpuscular Volume 90.8, Mean Corpuscular Hemoglobin 29.8, Mean Corpuscular Hemoglobin Concent 32.8, Red Cell Distribution Width 14.0, Platelet Count 250, Neutrophils (%) (Auto) 73.8H, Lymphocytes (%) (Auto) 11.3L, Monocytes (%) (Auto) 13.9H, Eosinophils (%) (Auto ) 0.3, Basophils (%) (Auto) 0.2, Neutrophils # (Auto) 9.6H, Lymphocytes # (Auto ) 1.5, Monocytes # (Auto) 1.8H, Eosinophils # (Auto) 0.0, Basophils # (Auto) 0.0 , Immature Granulocyte # (Auto) 0.1H, Nucleated Red Blood Cells % (auto) 0.0, Prothrombin Time 17.2H, Prothromb Time International Ratio 1.37, Anion Gap 9, Glomerular Filtration Rate > 60.0, Blood Urea Nitrogen 13, Creatinine 0.76, Sodium Level 138, Potassium Level 4.3, Chloride Level 101, Carbon Dioxide Level 28, Calcium Level 8.9 CBC/BMP Laboratory Tests 10/18/17 06:35 Red Blood Count 4.23, Mean Corpuscular Volume 90.8, Mean Corpuscular Hemoglobin 29.8, Mean Corpuscular Hemoglobin Concent 32.8, Red Cell Distribution Width 14.0 , Neutrophils (%) (Auto) 73.8 H, Lymphocytes (%) (Auto) 11.3 L, Monocytes (%) ( Auto) 13.9 H, Eosinophils (%) (Auto) 0.3, Basophils (%) (Auto) 0.2, Neutrophils # (Auto) 9.6 H, Lymphocytes # (Auto) 1.5, Monocytes # (Auto) 1.8 H, Eosinophils # (Auto) 0.0, Basophils # (Auto) 0.0, Calcium Level 8.9 Cherri Hagen [facility] Oct 18, 2017 11:07
[2017-10-18] MEDS: FUROSEMIDE 40 MG TAB PO SCH (11:57)
[2017-10-18 14:00] VITALS: BP 132/61
[2017-10-18] MEDS ORDERED: WARFARIN SOD 7.5 MG TAB PO ONE (17:00)
[2017-10-18 20:00] VITALS: O2SAT 94
[2017-10-18] MEDS: ATORVASTATIN 20 MG TAB PO SCH (20:29)
[2017-10-18 22:00] VITALS: BP 152/64
[2017-10-19] MEDS: traMADol 50 MG TAB PO PRN (05:13)
[2017-10-19 06:00] VITALS: BP 178/70
[2017-10-19 07:12] LABS: MEAN CORPUSCULAR HEMOGLOBIN 30.2 pg (27.0-33.0); MEAN CORPUSCULAR HGB CONC 32.9 g/dl (32.0-36.5); MEAN CORPUSCULAR VOLUME 91.9 fl (80.0-96.0); PLATELET COUNT, AUTOMATED 239 10^3/uL (150-450); RED CELL DISTRIBUTION WIDTH 13.7 % (11.5-14.5); WHITE BLOOD COUNT 13.4 10^3/uL (4.0-10.0)
[2017-10-19 07:21] LABS: INR 1.43
[2017-10-19 07:27] LABS: ANION GAP 6 MEQ/L (8-16); BLOOD UREA NITROGEN 19 MG/DL (7-18); CALCIUM LEVEL 8.2 MG/DL (8.8-10.2); CARBON DIOXIDE LEVEL 30 MEQ/L (21-32); CHLORIDE LEVEL 98 MEQ/L (98-107); CREATININE FOR GFR 0.68 MG/DL (0.55-1.02); GLOMERULAR FILTRATION RATE > 60.0 (>39); GLUCOSE, FASTING 119 MG/DL (83-110); POTASSIUM SERUM 4.1 MEQ/L (3.5-5.1); SODIUM LEVEL 134 MEQ/L (136-145)
[2017-10-19] MEDS: MOM 30ML SUSPENSION UDC PO SCH (09:00)
[2017-10-19] MEDS: MIRALAX *UNIT DOSE* 17GM PACKET PO SCH (09:00)
[2017-10-19] MEDS: ACETAMINOPHEN TAB 650MG DOSE (2X325MG) PO PRN (09:58)
[2017-10-19 10:00] VITALS: BP 167/79
[2017-10-19] MEDS: metFORMIN (GLUCOPHAGE) 1000 MG TABLET PO SCH (10:00)
[2017-10-19] MEDS: BENAZEPRIL 20 MG TAB PO SCH (10:00)
[2017-10-19] MEDS: METOPROLOL SUCC (TopROL XL) 100MG *XL* TAB PO SCH (10:01)
[2017-10-19] MEDS: SENOKOT S TAB PO SCH (10:01)
[2017-10-19] MEDS: amLODIPine 5 MG TAB PO SCH (10:01)
[2017-10-19] MEDS: FUROSEMIDE 40 MG TAB PO SCH (10:01)
--- NOTE | 2017-10-24 10:13 | DSES ---
DATE OF ADMISSION: 10/16/2017 DATE OF DISCHARGE: 10/19/2107 HISTORY OF PRESENT ILLNESS: This is a pleasant female with continuing symptomatic right knee osteoarthritis. She consented for right total knee arthroplasty per Dr. Matias Lowe. Medical optimization was achieved per primary care. X-rays are consistent with advanced osteoarthritis. OPERATION PERFORMED: Right total knee arthroplasty. HOSPITAL COURSE: The patient uneventfully underwent right total knee arthroplasty under spinal anesthesia with a right femoral nerve block. Our hospital team transferred the patient postoperatively to postanesthesia care unit (PACU) uneventfully. Our team felt comfortable discharging the patient on 10/19/2017 with the following instructions. Weightbearing as tolerated with walker, Percocet as needed pain, Coumadin and ELIJAH stockings times 30 days and Optifoam dressing change in 3-4 days time. Followup will be at [facility] 12-14 days for wound check, staple removal. The patient is encouraged to contact our office with increased pain, numbness, tingling, redness, drainage, bleeding, fever greater than 101 or any other further concerns. SAVANNAH
== END 2017-10-19 12:20 | disposition home health service (06) | DRG 470 ==
LOC: M OR 10:43 → M MS5PR 16:55
PROVIDERS: ADMIT Orthopaedic Surgery; ATTEND Orthopaedic Surgery
PROC: 0SRC0J9 Replacement of Right Knee Joint with Synthetic Substitute, Cemented, Open Approach (ICD-10-PCS; principal; 2017-10-16 13:30)
DX: M17.11 Unilateral primary osteoarthritis, right knee (principal); E11.9 Type 2 diabetes mellitus without complications; K76.0 Fatty (change of) liver, not elsewhere classified; J84.10 Pulmonary fibrosis, unspecified; R91.8 Other nonspecific abnormal finding of lung field; I10 Essential (primary) hypertension; E78.5 Hyperlipidemia, unspecified; M06.9 Rheumatoid arthritis, unspecified; Z79.4 Long term (current) use of insulin; Z79.899 Other long term (current) drug therapy; Z88.2 Allergy status to sulfonamides; Z96.641 Presence of right artificial hip joint

== ENCOUNTER → 2017-10-24 | Outpatient (REF) | payer MEDICARE ==
[~2017-10-24] MED LIST changes: +AMLO5TAB2 PO; +METO1TAB33 PO; +TRAM50TA2 PO
[2017-10-24 14:23] LABS: INR 3.66
== END ==
LOC: M SHH 13:44
PROVIDERS: ATTEND Nurse Practitioner Family
DX: Z79.01 Long term (current) use of anticoagulants (principal)

== ENCOUNTER → 2017-10-26 | Outpatient (REF) | payer MEDICARE ==
[2017-10-26 12:47] LABS: INR 2.43
== END ==
LOC: M SHH 11:53
DX: Z51.81 Encounter for therapeutic drug level monitoring (principal); Z79.01 Long term (current) use of anticoagulants
CPT/HCPCS: 85610

== ENCOUNTER → 2017-11-02 | Outpatient (REF) | payer MEDICARE ==
[2017-11-02 11:39] LABS: INR 1.07
== END ==
LOC: M SHH 11:17
DX: Z79.01 Long term (current) use of anticoagulants (principal)
CPT/HCPCS: 85610

== ENCOUNTER → 2017-11-06 | Outpatient (REF) | payer MEDICARE ==
[2017-11-06 15:19] LABS: PROTHROMBIN TIME 15.4 SECONDS (12.4-14.5)
== END ==
LOC: M SHH 14:36
DX: Z79.01 Long term (current) use of anticoagulants (principal)
CPT/HCPCS: 85610

== ENCOUNTER → 2017-11-09 | Outpatient (REF) | payer MEDICARE ==
[2017-11-09 14:39] LABS: INR 1.06
== END ==
LOC: M SHH 13:37
DX: Z79.1 Long term (current) use of non-steroidal anti-inflammatories (NSAID) (principal); Z79.01 Long term (current) use of anticoagulants
CPT/HCPCS: 85610

== ENCOUNTER → 2017-11-13 | Outpatient (REF) | payer MEDICARE ==
[2017-11-13 14:50] LABS: PROTHROMBIN TIME 13.3 SECONDS (12.4-14.5)
== END ==
LOC: M SHH 14:16
DX: Z79.01 Long term (current) use of anticoagulants (principal)
CPT/HCPCS: 85610

== ENCOUNTER → 2018-03-22 | Outpatient (REF) | payer MEDICARE ==
[2018-03-22 14:33] LABS: TOTAL 25(OH) VITAMIN D 21.4 NG/ML (30.0-100.0)
[2018-03-22 14:37] LABS: ALBUMIN 3.6 GM/DL (3.2-5.2); ALBUMIN/GLOBULIN RATIO 0.97 (1.00-1.93); ALKALINE PHOSPHATASE 73 U/L (45-117); ALT/SGPT 19 U/L (12-78); ANION GAP 7 MEQ/L (8-16); AST/SGOT 12 U/L (7-37); BILIRUBIN,TOTAL 0.5 MG/DL (0.2-1.0); BLOOD UREA NITROGEN 18 MG/DL (7-18); CARBON DIOXIDE LEVEL 29 MEQ/L (21-32); CHLORIDE LEVEL 107 MEQ/L (98-107); CHOLESTEROL LEVEL 119 MG/DL (<200); CHOLESTEROL RISK RATIO 2.767 (<5); CREATININE FOR GFR 0.73 MG/DL (0.55-1.30); GLOMERULAR FILTRATION RATE > 60.0 (>39); GLUCOSE, FASTING 89 MG/DL (70-100); HDL CHOLESTEROL 43 MG/DL (>40); LDL CHOLESTEROL 53.8 MG/DL (<100); NON-HDL-C 76 MG/DL; POTASSIUM SERUM 4.7 MEQ/L (3.5-5.1); SODIUM LEVEL 143 MEQ/L (136-145); TOTAL PROTEIN 7.3 GM/DL (6.4-8.2); TRIGLYCERIDES LEVEL 111 MG/DL (<150)
[2018-03-22 15:06] LABS: ESTIMATED AVERAGE GLUCOSE 117 MG/DL (60-110); HEMOGLOBIN A1c 5.7 %
[2018-03-22 15:50] LABS: MALB URINE SIEMENS 29.9 MG/L; MAU/CREAT RATIO 19.4 MCG/MG (0.0-30.0)
== END ==
LOC: M SFHCPLAZ 09:40
DX: I10 Essential (primary) hypertension (principal); E11.9 Type 2 diabetes mellitus without complications; E78.2 Mixed hyperlipidemia; E55.9 Vitamin D deficiency, unspecified
CPT/HCPCS: 80053

== ENCOUNTER 2018-09-13 16:40 | Inpatient (IN) | payer MEDICARE ==
[2018-09-13 17:21] LABS: ABG BASE EXCESS 0.4 (-2.0-2.0); ABG O2 SATURATION 92.4 % (95.0-99.0); ABG PARTIAL PRESSURE CO2 40.6 mmHg (35.0-45.0); ABG PARTIAL PRESSURE O2 64.1 mmHg (75.0-100.0); ABG STANDARD HCO3 24.7 MEQ/L (22.0-26.0); ABG TOTAL CO2 26.3 MEQ/L (23.0-31.0); ABG pH (ARTERIAL) 7.408 UNITS (7.350-7.450)
[2018-09-13 17:28] LABS: BASO # 0.1 10^3/uL (0.0-0.2); BASO % 0.5 % (0.0-1.0); EOS # 0.5 10^3/uL (0.0-0.50); EOS % 4.7 % (0.0-3.0); HEMATOCRIT 41.5 % (36.0-47.0); HEMOGLOBIN 13.9 g/dl (12.0-15.5); IMMATURE GRANULOCYTE % 0.4 % (0-3.0); LYMPH # 1.2 10^3/uL (1.5-4.5); LYMPH % 12.4 % (24.0-44.0); MEAN CORPUSCULAR HEMOGLOBIN 30.5 pg (27.0-33.0); MEAN CORPUSCULAR HGB CONC 33.5 g/dl (32.0-36.5); MEAN CORPUSCULAR VOLUME 91.2 fl (80.0-96.0); MONO # 1.1 10^3/uL (0.0-0.8); MONO % 11.1 % (0.0-5.0); NEUTROPHILS # 6.8 10^3/uL (1.8-7.7); NEUTROPHILS % 70.9 % (36.0-66.0); PLATELET COUNT, AUTOMATED 307 10^3/uL (150-450); RED BLOOD COUNT 4.55 10^6/uL (4.00-5.40); RED CELL DISTRIBUTION WIDTH 13.9 % (11.5-14.5); WHITE BLOOD COUNT 9.6 10^3/uL (4.0-10.0)
[2018-09-13 17:39] LABS: INR 0.99; PROTHROMBIN TIME 13.2 SECONDS (12.1-14.4)
[2018-09-13 17:58] LABS: ALBUMIN 3.7 GM/DL (3.2-5.2); ALBUMIN/GLOBULIN RATIO 0.93 (1.00-1.93); ALKALINE PHOSPHATASE 78 U/L (45-117); ALT/SGPT 18 U/L (12-78); ANION GAP 10 MEQ/L (8-16); AST/SGOT 16 U/L (7-37); BILIRUBIN,DIRECT 0.2 MG/DL (0.0-0.2); BILIRUBIN,TOTAL 0.5 MG/DL (0.2-1.0); BLOOD UREA NITROGEN 23 MG/DL (7-18); CALCIUM LEVEL 9.1 MG/DL (8.8-10.2); CARBON DIOXIDE LEVEL 25 MEQ/L (21-32); CHLORIDE LEVEL 104 MEQ/L (98-107); CPK CREATINE PHOSPHOKINASE 51 U/L (26-192); CREATININE FOR GFR 0.88 MG/DL (0.55-1.30); GLOMERULAR FILTRATION RATE > 60.0 (>39); GLUCOSE, FASTING 146 MG/DL (70-100); MB/CK RELATIVE INDEX 2.55 (< OR =4); NT-PRO BNP 2630 PG/ML (<450); POTASSIUM SERUM 3.7 MEQ/L (3.5-5.1); SODIUM LEVEL 139 MEQ/L (136-145); TOTAL PROTEIN 7.7 GM/DL (6.4-8.2); TROPONIN I 0.03 NG/ML (< 0.10)
[2018-09-13 18:22] LABS: LACTIC ACID SEPSIS PROTOCOL 3.1 MMOL/L (0.4-2.0)
[2018-09-13] MEDS ORDERED: GLUCOSE 4 GM CHEW TABLET PO (19:30)
[2018-09-13] MEDS ORDERED: ACETAMINOPHEN TAB 650MG DOSE (2X325MG) PO (19:30)
[2018-09-13] MEDS ORDERED: IPRATROPIUM 0.5MG/ALBUTEROL 2.5MG INH SOL UD 3ML (DUONEB)(J7620) NEB (19:30)
[2018-09-13] MEDS ORDERED: DEXTROSE 50% 50 ML SYRINGE IV (19:30)
[2018-09-13] MEDS ORDERED: ONDANSETRON 4MG/2ML VIAL (J2405) IV (19:30)
[2018-09-13] MEDS ORDERED: GLUCAGON FOR INJ 1 MG VIAL (J1610) SC (19:30)
[2018-09-13] MEDS ORDERED: ISOVUE-370 76% 100ML VIAL (Q9967) As Ordered (19:30)
[2018-09-13] MEDS: IPRATROPIUM 0.5MG/ALBUTEROL 2.5MG INH SOL UD 3ML (DUONEB)(J7620) NEB (19:51)
[2018-09-13] MEDS: HumaLOG INSULIN (NovoLOG) PER UNIT SC (21:00)
[2018-09-13] MEDS: NS 500 ML IV (21:30)
[2018-09-13] MEDS: cefTRIAXone SOD 2 GM in D5W MINI-BAG PLUS 50 ML IV (21:30)
[2018-09-13] MEDS: SENOKOT S TAB PO (22:23)
[2018-09-13] MEDS: ATORVASTATIN 20 MG TAB PO (22:23)
[2018-09-13] MEDS: ASPIRIN 81 MG ENTERIC TAB PO (22:23)
[2018-09-13] MEDS: guaiFENesin ER 600 MG TAB PO (22:23)
[2018-09-13 22:25] LABS: BEDSIDE GLUCOSE 113 MG/DL (83-110)
[2018-09-13] MEDS: amLODIPine 5 MG TAB PO (23:07)
[2018-09-13] MEDS: AZITHROMYCIN INJ 500 MG, VIAL MATE ADAPTER 1 EACH in D5W 250 ML IV (23:07)
[2018-09-14 01:44] LABS: CK-MB VALUE MASS < 1.0 NG/ML (<3.6); CPK CREATINE PHOSPHOKINASE 44 U/L (26-192); MB/CK RELATIVE INDEX 2.27 (< OR =4); TROPONIN I 0.03 NG/ML (< 0.10)
[2018-09-14] MEDS: IPRATROPIUM 0.5MG/ALBUTEROL 2.5MG INH SOL UD 3ML (DUONEB)(J7620) NEB ×4 (02:00→20:21)
[2018-09-14 05:44] LABS: HEMATOCRIT 37.5 % (36.0-47.0); HEMOGLOBIN 12.3 g/dl (12.0-15.5); MEAN CORPUSCULAR HEMOGLOBIN 30.4 pg (27.0-33.0); MEAN CORPUSCULAR HGB CONC 32.8 g/dl (32.0-36.5); MEAN CORPUSCULAR VOLUME 92.8 fl (80.0-96.0); PLATELET COUNT, AUTOMATED 252 10^3/uL (150-450); RED BLOOD COUNT 4.04 10^6/uL (4.00-5.40); RED CELL DISTRIBUTION WIDTH 13.7 % (11.5-14.5); WHITE BLOOD COUNT 8.1 10^3/uL (4.0-10.0)
[2018-09-14 06:00] LABS: ANION GAP 6 MEQ/L (8-16); BLOOD UREA NITROGEN 14 MG/DL (7-18); C REACTIVE PROTEIN QUANTITATIV 1.26 MG/DL (0.00-0.30); CALCIUM LEVEL 8.4 MG/DL (8.8-10.2); CARBON DIOXIDE LEVEL 28 MEQ/L (21-32); CHLORIDE LEVEL 105 MEQ/L (98-107); CREATININE FOR GFR 0.72 MG/DL (0.55-1.30); GLOMERULAR FILTRATION RATE > 60.0 (>39); GLUCOSE, FASTING 93 MG/DL (70-100); MAGNESIUM LEVEL 1.6 MG/DL (1.8-2.4); POTASSIUM SERUM 3.9 MEQ/L (3.5-5.1); SODIUM LEVEL 139 MEQ/L (136-145)
[2018-09-14 06:04] LABS: CK-MB VALUE MASS < 1.0 NG/ML (<3.6); CPK CREATINE PHOSPHOKINASE 44 U/L (26-192); MB/CK RELATIVE INDEX 2.27 (< OR =4); TROPONIN I 0.03 NG/ML (< 0.10)
[2018-09-14] MEDS: HumaLOG INSULIN (NovoLOG) PER UNIT SC ×4 (07:24→21:00)
[2018-09-14] MEDS: MAG SULF 1GM/100ML (MAG RUN) 1 GM in APPROPRIATE DILUENT 1 EA IV (08:42)
[2018-09-14] MEDS: guaiFENesin ER 600 MG TAB PO ×2 (08:43→21:03)
[2018-09-14] MEDS: amLODIPine 5 MG TAB PO ×2 (08:43→16:22)
[2018-09-14] MEDS: METOPROLOL SUCC (TopROL XL) 100MG *XL* TAB PO (08:43)
[2018-09-14] MEDS: BENAZEPRIL 20 MG TAB PO (08:43)
[2018-09-14] MEDS: HEPARIN SOD (PORCINE) 5000 UNITS/ML VIAL SC ×2 (08:44→21:06)
[2018-09-14] MEDS: SENOKOT S TAB PO ×2 (09:00→21:00)
[2018-09-14] MEDS ORDERED: SLF 3 ML SYR IV (09:00)
[2018-09-14] MEDS: FUROSEMIDE 40 MG/4 ML VIAL (J1940) IV (10:50)
[2018-09-14 11:35] LABS: BEDSIDE GLUCOSE 137 MG/DL (83-110)
[2018-09-14] MEDS: SLF 3 ML SYR IV ×2 (14:00→21:04)
[2018-09-14 16:56] LABS: BEDSIDE GLUCOSE 99 MG/DL (83-110)
[2018-09-14] MEDS: cefTRIAXone SOD 2 GM in D5W MINI-BAG PLUS 50 ML IV (20:00)
[2018-09-14 20:14] LABS: BEDSIDE GLUCOSE 124 MG/DL (83-110)
[2018-09-14] MEDS: AZITHROMYCIN INJ 500 MG, VIAL MATE ADAPTER 1 EACH in D5W 250 ML IV (21:03)
[2018-09-14] MEDS: ASPIRIN 81 MG ENTERIC TAB PO (21:03)
[2018-09-14] MEDS: ATORVASTATIN 20 MG TAB PO (21:03)
[2018-09-15] MEDS: IPRATROPIUM 0.5MG/ALBUTEROL 2.5MG INH SOL UD 3ML (DUONEB)(J7620) NEB ×4 (02:00→20:21)
[2018-09-15 05:51] LABS: HEMATOCRIT 39.6 % (36.0-47.0); HEMOGLOBIN 12.8 g/dl (12.0-15.5); MEAN CORPUSCULAR HEMOGLOBIN 29.7 pg (27.0-33.0); MEAN CORPUSCULAR HGB CONC 32.3 g/dl (32.0-36.5); MEAN CORPUSCULAR VOLUME 91.9 fl (80.0-96.0); PLATELET COUNT, AUTOMATED 252 10^3/uL (150-450); RED BLOOD COUNT 4.31 10^6/uL (4.00-5.40); RED CELL DISTRIBUTION WIDTH 13.7 % (11.5-14.5)
[2018-09-15] MEDS: SLF 3 ML SYR IV ×3 (06:00→21:02)
[2018-09-15 06:13] LABS: ANION GAP 6 MEQ/L (8-16); BLOOD UREA NITROGEN 15 MG/DL (7-18); C REACTIVE PROTEIN QUANTITATIV 1.47 MG/DL (0.00-0.30); CALCIUM LEVEL 8.3 MG/DL (8.8-10.2); CARBON DIOXIDE LEVEL 29 MEQ/L (21-32); CHLORIDE LEVEL 105 MEQ/L (98-107); CREATININE FOR GFR 0.81 MG/DL (0.55-1.30); GLOMERULAR FILTRATION RATE > 60.0 (>39); GLUCOSE, FASTING 102 MG/DL (70-100); POTASSIUM SERUM 3.7 MEQ/L (3.5-5.1); SODIUM LEVEL 140 MEQ/L (136-145)
[2018-09-15] MEDS: HEPARIN SOD (PORCINE) 5000 UNITS/ML VIAL SC ×2 (09:06→21:03)
[2018-09-15] MEDS: HumaLOG INSULIN (NovoLOG) PER UNIT SC ×4 (09:06→21:00)
[2018-09-15] MEDS: FUROSEMIDE 40 MG TAB PO (09:07)
[2018-09-15] MEDS: amLODIPine 10 MG TAB PO (09:07)
[2018-09-15] MEDS: guaiFENesin ER 600 MG TAB PO ×2 (09:07→21:04)
[2018-09-15] MEDS: METOPROLOL SUCC (TopROL XL) 100MG *XL* TAB PO (09:08)
[2018-09-15] MEDS: BENAZEPRIL 20 MG TAB PO (09:08)
[2018-09-15] MEDS: SENOKOT S TAB PO ×2 (09:08→21:00)
[2018-09-15 11:41] LABS: BEDSIDE GLUCOSE 101 MG/DL (83-110)
[2018-09-15 17:06] LABS: BEDSIDE GLUCOSE 126 MG/DL (83-110)
[2018-09-15] MEDS: cefTRIAXone SOD 2 GM in D5W MINI-BAG PLUS 50 ML IV (20:13)
[2018-09-15 20:20] LABS: BEDSIDE GLUCOSE 88 MG/DL (83-110)
[2018-09-15] MEDS: AZITHROMYCIN INJ 500 MG, VIAL MATE ADAPTER 1 EACH in D5W 250 ML IV (21:02)
[2018-09-15] MEDS: ASPIRIN 81 MG ENTERIC TAB PO (21:03)
[2018-09-15] MEDS: ATORVASTATIN 20 MG TAB PO (21:04)
[2018-09-16] MEDS: IPRATROPIUM 0.5MG/ALBUTEROL 2.5MG INH SOL UD 3ML (DUONEB)(J7620) NEB ×4 (01:54→20:12)
[2018-09-16 05:22] LABS: HEMATOCRIT 37.6 % (36.0-47.0); HEMOGLOBIN 12.4 g/dl (12.0-15.5); MEAN CORPUSCULAR HEMOGLOBIN 30.2 pg (27.0-33.0); MEAN CORPUSCULAR VOLUME 91.5 fl (80.0-96.0); PLATELET COUNT, AUTOMATED 247 10^3/uL (150-450); RED BLOOD COUNT 4.11 10^6/uL (4.00-5.40); RED CELL DISTRIBUTION WIDTH 13.7 % (11.5-14.5); WHITE BLOOD COUNT 6.9 10^3/uL (4.0-10.0)
[2018-09-16 05:41] LABS: ANION GAP 7 MEQ/L (8-16); BLOOD UREA NITROGEN 12 MG/DL (7-18); C REACTIVE PROTEIN QUANTITATIV 1.76 MG/DL (0.00-0.30); CALCIUM LEVEL 8.2 MG/DL (8.8-10.2); CARBON DIOXIDE LEVEL 30 MEQ/L (21-32); CHLORIDE LEVEL 103 MEQ/L (98-107); CREATININE FOR GFR 0.71 MG/DL (0.55-1.30); GLOMERULAR FILTRATION RATE > 60.0 (>39); GLUCOSE, FASTING 101 MG/DL (70-100); POTASSIUM SERUM 3.6 MEQ/L (3.5-5.1); SODIUM LEVEL 140 MEQ/L (136-145)
[2018-09-16] MEDS: SLF 3 ML SYR IV ×3 (06:00→21:18)
[2018-09-16] MEDS: HumaLOG INSULIN (NovoLOG) PER UNIT SC ×4 (07:30→21:00)
[2018-09-16] MEDS: SENOKOT S TAB PO ×2 (09:00→21:00)
[2018-09-16] MEDS: METOPROLOL SUCC (TopROL XL) 100MG *XL* TAB PO (09:25)
[2018-09-16] MEDS: HEPARIN SOD (PORCINE) 5000 UNITS/ML VIAL SC ×2 (09:25→21:19)
[2018-09-16] MEDS: guaiFENesin ER 600 MG TAB PO ×2 (09:26→21:20)
[2018-09-16] MEDS: FUROSEMIDE 40 MG TAB PO (09:26)
[2018-09-16] MEDS: amLODIPine 10 MG TAB PO (09:26)
[2018-09-16] MEDS: BENAZEPRIL 20 MG TAB PO (09:26)
[2018-09-16 11:54] LABS: BEDSIDE GLUCOSE 105 MG/DL (83-110)
[2018-09-16] MEDS: FUROSEMIDE 20 MG/2 ML VIAL (J1940) IV (14:12)
[2018-09-16 18:14] LABS: BEDSIDE GLUCOSE 121 MG/DL (83-110)
[2018-09-16] MEDS: cefTRIAXone SOD 2 GM in D5W MINI-BAG PLUS 50 ML IV (20:03)
[2018-09-16 20:36] LABS: BEDSIDE GLUCOSE 197 MG/DL (83-110)
[2018-09-16] MEDS: AZITHROMYCIN INJ 500 MG, VIAL MATE ADAPTER 1 EACH in D5W 250 ML IV (21:18)
[2018-09-16] MEDS: ASPIRIN 81 MG ENTERIC TAB PO (21:19)
[2018-09-16] MEDS: ATORVASTATIN 20 MG TAB PO (21:20)
[2018-09-17] MEDS: IPRATROPIUM 0.5MG/ALBUTEROL 2.5MG INH SOL UD 3ML (DUONEB)(J7620) NEB ×2 (02:00→07:32)
[2018-09-17 05:48] LABS: ANION GAP 6 MEQ/L (8-16); BLOOD UREA NITROGEN 18 MG/DL (7-18); C REACTIVE PROTEIN QUANTITATIV 1.74 MG/DL (0.00-0.30); CALCIUM LEVEL 8.3 MG/DL (8.8-10.2); CARBON DIOXIDE LEVEL 28 MEQ/L (21-32); CHLORIDE LEVEL 99 MEQ/L (98-107); CREATININE FOR GFR 0.88 MG/DL (0.55-1.30); GLOMERULAR FILTRATION RATE > 60.0 (>39); GLUCOSE, FASTING 146 MG/DL (70-100); MAGNESIUM LEVEL 1.9 MG/DL (1.8-2.4); POTASSIUM SERUM 4.7 MEQ/L (3.5-5.1); SODIUM LEVEL 133 MEQ/L (136-145)
[2018-09-17] MEDS: SLF 3 ML SYR IV (06:00)
[2018-09-17 07:30] LABS: HEMOGLOBIN 12.1 g/dl (12.0-15.5); MEAN CORPUSCULAR HEMOGLOBIN 30.3 pg (27.0-33.0); MEAN CORPUSCULAR HGB CONC 32.7 g/dl (32.0-36.5); MEAN CORPUSCULAR VOLUME 92.7 fl (80.0-96.0); PLATELET COUNT, AUTOMATED 265 10^3/uL (150-450); RED BLOOD COUNT 3.99 10^6/uL (4.00-5.40); RED CELL DISTRIBUTION WIDTH 13.5 % (11.5-14.5); WHITE BLOOD COUNT 7.9 10^3/uL (4.0-10.0)
[2018-09-17] MEDS: HumaLOG INSULIN (NovoLOG) PER UNIT SC ×2 (07:30→12:45)
[2018-09-17] MEDS: SENOKOT S TAB PO (08:31)
[2018-09-17] MEDS: FUROSEMIDE 40 MG TAB PO (08:31)
[2018-09-17] MEDS: amLODIPine 10 MG TAB PO (08:32)
[2018-09-17] MEDS: METOPROLOL SUCC (TopROL XL) 100MG *XL* TAB PO (08:32)
[2018-09-17] MEDS: guaiFENesin ER 600 MG TAB PO (08:33)
[2018-09-17] MEDS: HEPARIN SOD (PORCINE) 5000 UNITS/ML VIAL SC (08:33)
[2018-09-17] MEDS: BENAZEPRIL 20 MG TAB PO (08:45)
== END 2018-09-17 12:45 | disposition home or self-care (01) | DRG 193 ==
LOC: M ED 16:40 → M ED INP 19:25 → M PCU 22:11
PROVIDERS: Hospitalist
DX: J15.9 Unspecified bacterial pneumonia (principal); J96.01 Acute respiratory failure with hypoxia; I50.33 Acute on chronic diastolic (congestive) heart failure; M06.9 Rheumatoid arthritis, unspecified; E11.9 Type 2 diabetes mellitus without complications; E78.5 Hyperlipidemia, unspecified; I27.29 Other secondary pulmonary hypertension; I11.0 Hypertensive heart disease with heart failure; I50.810 Right heart failure, unspecified; M19.90 Unspecified osteoarthritis, unspecified site; Z88.2 Allergy status to sulfonamides; Z96.641 Presence of right artificial hip joint; Z96.651 Presence of right artificial knee joint; Z79.82 Long term (current) use of aspirin; Z79.84 Long term (current) use of oral hypoglycemic drugs; Z79.899 Other long term (current) drug therapy

== ENCOUNTER → 2018-09-13 | Outpatient (REF) | payer MEDICARE ==
[2018-09-13 16:27] LABS: VENOUS BASE EXCESS -0.1 (-2.0-2.0); VENOUS HCO3 26.6 MEQ/L (23.0-27.0); VENOUS O2 SATURATION 79.7 % (60.0-80.0); VENOUS PARTIAL PRESSURE CO2 51.3 mmHg (38.0-50.0); VENOUS PARTIAL PRESSURE O2 47.2 mmHg (30.0-50.0); VENOUS PH 7.333 UNITS (7.330-7.430); VENOUS TOTAL CO2 28.2 MEQ/L (24.0-28.0)
[2018-09-13 16:35] LABS: BASO % 0.5 % (0.0-1.0); EOS # 0.5 10^3/uL (0.0-0.50); EOS % 5.4 % (0.0-3.0); HEMATOCRIT 42.8 % (36.0-47.0); HEMOGLOBIN 14.1 g/dl (12.0-15.5); IMMATURE GRANULOCYTE % 0.5 % (0-3.0); LYMPH # 1.1 10^3/uL (1.5-4.5); LYMPH % 12.2 % (24.0-44.0); MEAN CORPUSCULAR HEMOGLOBIN 30.7 pg (27.0-33.0); MEAN CORPUSCULAR HGB CONC 32.9 g/dl (32.0-36.5); MEAN CORPUSCULAR VOLUME 93.2 fl (80.0-96.0); MONO # 0.9 10^3/uL (0.0-0.8); MONO % 10.2 % (0.0-5.0); NEUTROPHILS # 6.3 10^3/uL (1.8-7.7); NEUTROPHILS % 71.2 % (36.0-66.0); PLATELET COUNT, AUTOMATED 322 10^3/uL (150-450); RED BLOOD COUNT 4.59 10^6/uL (4.00-5.40); RED CELL DISTRIBUTION WIDTH 13.9 % (11.5-14.5); WHITE BLOOD COUNT 8.8 10^3/uL (4.0-10.0)
[2018-09-13 17:15] LABS: ERYTHROCYTE SEDIMENTATION RATE 28 mm/hr (0-30)
[2018-09-13 17:16] LABS: ALBUMIN 3.6 GM/DL (3.2-5.2); ALBUMIN/GLOBULIN RATIO 0.95 (1.00-1.93); ALKALINE PHOSPHATASE 84 U/L (45-117); ALT/SGPT 18 U/L (12-78); ANION GAP 12 MEQ/L (8-16); AST/SGOT 14 U/L (7-37); BILIRUBIN,TOTAL 0.7 MG/DL (0.2-1.0); BLOOD UREA NITROGEN 22 MG/DL (7-18); CALCIUM LEVEL 8.9 MG/DL (8.8-10.2); CARBON DIOXIDE LEVEL 26 MEQ/L (21-32); CHLORIDE LEVEL 102 MEQ/L (98-107); CREATININE FOR GFR 0.89 MG/DL (0.55-1.30); GLOMERULAR FILTRATION RATE > 60.0 (>39); GLUCOSE, FASTING 136 MG/DL (70-100); POTASSIUM SERUM 4.1 MEQ/L (3.5-5.1); SODIUM LEVEL 140 MEQ/L (136-145); TOTAL PROTEIN 7.4 GM/DL (6.4-8.2)
== END ==
LOC: M SFHCPLAZ 15:34
DX: J18.9 Pneumonia, unspecified organism (principal)
CPT/HCPCS: 82803

== ENCOUNTER → 2018-12-03 | Outpatient (CLI) | payer MEDICARE ==
[~2018-12-03] MED LIST changes: +AMLO10TA5 PO; -AMLO5TAB2 PO; +AMLO5TAB6 PO; +ASPI1TAB PO; +CEFD1CAP8 PO; -LOTE10TA11 PO; +LOTE10TA13 PO; +METF-877 PO
--- NOTE | 2018-12-03 14:43 | REP ---
Chest two views HISTORY: Shortness of breath Comparison: 09/13/2018 Increase in interstitial markings is present in the lungs consistent with chronic interstitial fibrosis. The heart is normal in size. The pulmonary vasculature is normal in appearance. The bony structure is intact. IMPRESSION: Chronic interstitial fibrosis. Electronically Signed by Toni Jha MD 12/03/2018 02:34 P
== END ==
LOC: M WUC 14:22
PROVIDERS: ATTEND Nurse Practitioner Family
DX: R06.02 Shortness of breath (principal); J84.10 Pulmonary fibrosis, unspecified

== ENCOUNTER → 2019-03-13 | Outpatient (REF) | payer MEDICARE ==
[~2019-03-13] MED LIST changes: +ACET300T47 PO; -ASPI1TAB PO; +ASPI81TA26 PO; -CODE30TA3 PO; -META1TAB19 PO; +META400T PO
[2019-03-13 16:00] LABS: BILIRUBIN,TOTAL 0.5 MG/DL (0.2-1.0); CALCIUM LEVEL 9.5 MG/DL (8.8-10.2); CREATININE FOR GFR 1.01 MG/DL (0.55-1.30); GLOMERULAR FILTRATION RATE 56.1 (>32); POTASSIUM SERUM 4.9 MEQ/L (3.5-5.1); TOTAL PROTEIN 7.3 GM/DL (6.4-8.2)
[2019-03-13 16:08] LABS: TOTAL 25(OH) VITAMIN D 19.8 NG/ML (30.0-100.0)
[2019-03-13 16:23] LABS: HEMOGLOBIN A1c 5.1 %
== END ==
LOC: M SFHCPLAZ 12:04
PROVIDERS: ATTEND Nurse Practitioner Family
DX: I10 Essential (primary) hypertension (principal); E11.9 Type 2 diabetes mellitus without complications; E78.2 Mixed hyperlipidemia; E55.9 Vitamin D deficiency, unspecified
CPT/HCPCS: 36415; 80053; 80061; 82306; 83036; G0463

== ENCOUNTER 2019-05-19 12:29 | Inpatient (IN) | payer MEDICARE ==
[~2019-05-19] VITALS: Ht 149.9 cm; Wt 76.5 kg
[2019-05-19] MEDS ORDERED: AMLO5TAB6 PO (12:45)
[2019-05-19] MEDS ORDERED: ALBUTEROL SULFATE 2.5 MG/0.5 ML INH NEB SOLN INH ONE (13:15)
[2019-05-19] MEDS ORDERED: IPRATROPIUM 0.5MG/ALBUTEROL 2.5MG INH SOL UD 3ML (DUONEB)(J7620) NEB ONE (13:15)
[2019-05-19 14:07] LABS: BASO % 0.4 % (0.0-1.0); EOS # 0.2 10^3/uL (0.0-0.50); EOS % 2.1 % (0.0-3.0); HEMOGLOBIN 12.8 g/dl (12.0-15.5); LYMPH # 1.4 10^3/uL (1.5-4.5); MEAN CORPUSCULAR HEMOGLOBIN 30.5 pg (27.0-33.0); MEAN CORPUSCULAR HGB CONC 32.8 g/dl (32.0-36.5); MEAN CORPUSCULAR VOLUME 92.9 fl (80.0-96.0); MONO # 0.8 10^3/uL (0.0-0.8); NEUTROPHILS # 6.8 10^3/uL (1.8-7.7); PLATELET COUNT, AUTOMATED 241 10^3/uL (150-450); WHITE BLOOD COUNT 9.3 10^3/uL (4.0-10.0)
[2019-05-19 14:16] LABS: PROTHROMBIN TIME 12.9 SECONDS (11.8-14.0)
[2019-05-19 14:39] LABS: ALBUMIN 3.6 GM/DL (3.2-5.2); BILIRUBIN,DIRECT 0.2 MG/DL (0.0-0.2); BILIRUBIN,TOTAL 0.5 MG/DL (0.2-1.0); CK-MB VALUE MASS 1.2 NG/ML (<3.6); CREATININE FOR GFR 1.09 MG/DL (0.55-1.30); GLOMERULAR FILTRATION RATE 51.4 (>32); MB/CK RELATIVE INDEX 2.93 (< OR =4); POTASSIUM SERUM 3.8 MEQ/L (3.5-5.1); THYROID STIMULATING HORMONE 0.815 uIU/ML (0.358-3.740); THYROXINE (T4) 10.6 UG/DL (4.5-12.0); TOTAL PROTEIN 7.2 GM/DL (6.4-8.2); TROPONIN I 0.36 NG/ML (< 0.10)
[2019-05-19] MEDS ORDERED: ISOVUE-370 76% 100ML VIAL (Q9967) As Ordered ONE (14:49)
[2019-05-19] MEDS ORDERED: dexameTHASONE 20 MG/5 ML VIAL (J1100) IV ONE (17:00)
[2019-05-19] MEDS ORDERED: metFORMIN (GLUCOPHAGE) 1000 MG TABLET PO SCH (18:00)
[2019-05-19 19:04] LABS: CK-MB VALUE MASS < 1.0 NG/ML (<3.6); CPK CREATINE PHOSPHOKINASE 69 U/L (26-192); MB/CK RELATIVE INDEX 1.45 (< OR =4); TROPONIN I 0.35 NG/ML (< 0.10)
--- NOTE | 2019-05-19 19:50 | ECGEPIP ---
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: roderick : 1940 Requested By: TOSHIA Ring Order Number: [id number] Reading MD: Karl Galindo Measurements Intervals [place] Rate: 53 P: 9 SD: 202 QRS: 10 QRSD: 98 T: QT: 441 QTc: 417 Interpretive Statements SINUS BRADYCARDIA MINIMAL VOLTAGE CRITERIA FOR LVH, CONSIDER NORMAL VARIANT ST DEVIATION AND MODERATE T-WAVE ABNORMALITY, CONSIDER ANTEROLATERAL ISCHEMIA ST DEVIATION AND MODERATE T-WAVE ABNORMALITY, CONSIDER INFERIOR ISCHEMIA CW 09/13/18 RATE DECREASED MORE PRONOUNCED ANTEROSEPTAL T WAVE INVERSIONS CLINICAL CORRELATION FOR ACUTE ISCHEMIA/INJURY PATTERN Electronically Signed on 05-19-2019 19:50:47 EDT by Karl Galindo
--- NOTE | 2019-05-19 20:04 | ECGEPIP ---
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
[2019-05-19] MEDS ORDERED: DRIS50003 PO (20:11)
[2019-05-19] MEDS ORDERED: AMLO10TA5 PO (20:11)
[2019-05-19] MEDS ORDERED: GLUCOSE 4 GM CHEW TABLET PO PRN (20:45)
[2019-05-19] MEDS ORDERED: MAALOX 30 ML SUSP *UDC PO PRN (20:45)
[2019-05-19] MEDS ORDERED: MOM 30ML SUSPENSION UDC PO PRN (20:45)
[2019-05-19] MEDS ORDERED: ACETAMINOPHEN TAB 650MG DOSE (2X325MG) PO PRN (20:45)
[2019-05-19] MEDS ORDERED: ALBUTEROL SULFATE 2.5 MG/0.5 ML INH NEB SOLN NEB PRN (20:45)
[2019-05-19] MEDS ORDERED: DEXTROSE 50% 50 ML SYRINGE IV PRN (20:45)
[2019-05-19] MEDS ORDERED: GLUCAGON FOR INJ 1 MG VIAL (J1610) SC PRN (20:45)
--- NOTE | 2019-05-19 20:51 | HPEPDOC ---
General Date of Admission 05/19/19 Date of Service: May 19, 2019 Attending Physician: MAGDALENO YOON MD Chief Complaint The patient is a 79-year-old female admitted with a reason for visit of sob. Source: Patient Exam Limitations: No limitations Timing/Duration: Day(s) Severity: Moderate Associated Symptoms: Shortness of breath Home Medications Scheduled Amlodipine Besylate (Amlodipine Besylate) 10 Mg Tablet, 10 MG PO DAILY, (Repor rey) Aspirin (Aspirin EC) 81 Mg Tab, 81 MG PO QHS, (Reported) Atorvastatin Calcium (Atorvastatin Calcium) 20 Mg Tab, 20 MG PO QHS, (Reported) Benazepril HCl (Benazepril HCl) 20 Mg Tab, 10 MG PO DAILY, (Reported) Ergocalciferol (Vitamin D2) (Drisdol) 50,000 Unit Capsule, 50,000 UNIT PO 1XWK, (Reported) MONDAYS Furosemide (Furosemide) 40 Mg Tab, 40 MG PO DAILY Metformin HCl (Metformin HCl) 1,000 Mg Tab, 1,000 MG PO BID, (Reported) Metoprolol Succinate (Metoprolol Succinate) 100 Mg Tab, 100 MG PO DAILY, (Reported) Allergies Coded Allergies: Sulfa (Sulfonamide Antibiotics) (Verified Allergy, Unknown, swelling, 05/19/19) Family History Significant Family History: No pertinent family hx Social History * Smoker: Denies A-FIB/CHADSVASC A-FIB History Current/History of A-Fib/PAF?: No Review of Systems Constitutional: Denies: Chills, Fever, Malaise, Night Sweats, Weakness, Fatigue, Weight Loss, Lethargy, Other Eyes: Denies: Pain, Vision change, Conjunctivae inflammation, Eyelid inflammation, Redness, Other ENT: Denies: Head Aches, Ear Pain, Dysphagia, Sinus Congestion, Post Nasal Drip, Sore Throat, Epistaxis, Other Symptoms Skin: Denies: Rash, Lesions, Jaundice, Bruising, Itching, Dry, Breakdown, Nail Changes, Other Pulmonary: Reports: Dyspnea Cardiovascular: Denies: Chest Pain, Palpitations, Orthopnea, Paroxysmal Noc. Dyspnea, Edema, Lt Headedness, Other Symptoms Gastrointestinal: Denies: Nausea, Vomiting, Abdominal Pain, Diarrhea, Constipation, Melena, Hematochezia, Other Symptoms Genitourinary: Denies: Dysuria, Frequency, Incontinence, Hematuria, Retention, Other Symptoms Hematologic: Denies: Bruising, Bleeding Excessively, Petecchia, Purpura, Enlarged Lymph Nodes, Other Hematologic Endocrine: Denies: Polydipsia, Polyphagia, Polyuria, Heat Intolerance, Cold Intolerance, Other Endocrine Sx Musculoskeletal: Denies: Neck Pain, Back Pain, Shoulder Pain, Arm Pain, Hand Pain, Leg Pain, Foot Pain, Joint Pain, Muscle Pain, Spasms, Other Symptoms Neurological: Denies: Weakness, Numbness, Incoordination, Change in speech, Confusion, Seizures, Other Symptoms Psych: Denies: Mood Normal, Anxiety, Depression, Memory Issues, Thoughts of Self Harm, Anger, Thoughts of Harming Other, Other Psych Physical Examination General Exam: Positive: Alert, Cooperative Eye Exam: Positive: PERRLA, Conjunctiva & lids normal ENT Exam: Positive: Atraumatic, Mucous membr. moist/pink Neck Exam: Positive: Supple Chest Exam: Positive: Wheezing, Diminished Heart Exam: Positive: Rate Normal, Normal S1, Normal S2 Abdomen Exam: Positive: Normal bowel sounds Extremity Exam: Positive: Normal pulses Neuro Exam: Positive: Normal Gait, Strength at 5/5 X4 ext, Normal Tone, Sensation Intact Psych Exam: Positive: Mental status NL, Mood NL, Oriented x 3 Vital Signs Vital Signs Date Time Temp Pulse Resp B/P (MAP) Pulse Ox O2 Delivery O2 Flow Rate FiO2 05/19/19 19:27 59 18 137/65 (89) 95 Nasal Cannula 4.0 05/19/19 18:39 98.4 Laboratory Data Labs 24H Laboratory Tests 2 05/19/19 13:34: POC pH (Misc Panel) 7.422, POC Base Excess (Misc Panel) 4.0H, POC Saturated Percent O2 (Misc) 96, POC pO2 (Misc Panel) 82.0, POC pCO2 (Misc Panel) 43.5, POC HCO3 (Misc Panel) 28.4H, POC Total CO2 (Misc Panel) 30.0H 05/19/19 13:48: Immature Granulocyte % (Auto) 0.5, White Blood Count 9.3, Red Blood Count 4.20, Hemoglobin 12.8, Hematocrit 39.0, Mean Corpuscular Volume 92.9, Mean Corpuscular Hemoglobin 30.5, Mean Corpuscular Hemoglobin Concent 32.8, Red Cell Distribution Width 14.5, Platelet Count 241, Neutrophils (%) (Auto) 73.0H, Lymphocytes (%) (Auto) 15.0L, Monocytes (%) (Auto) 9.0H, Eosinophils (%) (Auto) 2.1, Basophils (%) (Auto) 0.4, Neutrophils # (Auto) 6.8, Lymphocytes # (Auto) 1.4L, Monocytes # (Auto) 0.8, Eosinophils # (Auto) 0.2, Basophils # (Auto) 0.0, Nucleated Red Blood Cells % (auto) 0.0, Prothrombin Time 12.9, Prothromb Time International Ratio 1.00, Anion Gap 8, Glomerular Filtration Rate 51.4, Calcium Level 9.0, Aspartate Amino Transf (AST/SGOT) 15, Alanine Aminotransferase (ALT/SGPT) 25, Alkaline Phosphatase 60, Total Bilirubin 0.5, Direct Bilirubin 0.2, Total Creatine Kinase 41, Creatine Kinase MB 1.2, Creatine Kinase MB Relative Index 2.93, Troponin I 0.36H, PV-Fuz-P-Type Natriuretic Peptide 4377H, Total Protein 7.2, Albumin 3.6, Albumin/Globulin Ratio 1.00, Lipase 115, Thyroid Stimulating Hormone (TSH) 0.815, Thyroxine (T4) 10.6 05/19/19 18:12: Total Creatine Kinase 69, Creatine Kinase MB < 1.0, Creatine Kinase MB Relative Index 1.45, Troponin I 0.35H CBC/BMP Laboratory Tests 05/19/19 13:48 Red Blood Count 4.20, Mean Corpuscular Volume 92.9, Mean Corpuscular Hemoglobin 30.5, Mean Corpuscular Hemoglobin Concent 32.8, Red Cell Distribution Width 14.5, Neutrophils (%) (Auto) 73.0 H, Lymphocytes (%) (Auto) 15.0 L, Monocytes (%) (Auto) 9.0 H, Eosinophils (%) (Auto) 2.1, Basophils (%) (Auto) 0.4, Neutrophils # (Auto) 6.8, Lymphocytes # (Auto) 1.4 L, Monocytes # (Auto) 0.8, Eosinophils # (Auto) 0.2, Basophils # (Auto) 0.0 Microbiology Microbiology 05/19/19 Blood Culture, Received Pending 05/19/19 Blood Culture, Received Pending 05/19/19 Respiratory Virus Panel (PCR) ([facility]) - Final, Complete Problems (1) COPD exacerbation Status: Acute Problem Text: Admit to MedSurg with telemetry Saline lock Solu-Medrol 60 mg IV every 8 hours DuoNeb every 4 hours Proventil neb every hour when necessary Continue home meds Pulmonary consult if no improvement in symptoms with the current regimen, she'll sees Dr. Jordan as outpatient DVT prophylaxis with Lovenox Out of bed as tolerated 2 g sodium diet (2) Pulmonary fibrosis Status: Chronic Problem Text: As above Plan / VTE VTE Prophylaxis Ordered?: Yes MAGDALENO YOON MD May 19, 2019 20:51
[2019-05-19] MEDS: HumaLOG INSULIN (NovoLOG) PER UNIT SC SCH (21:00)
[2019-05-19] MEDS: DOCUSATE SODIUM 100 MG CAP PO SCH (22:22)
[2019-05-19] MEDS: ATORVASTATIN 20 MG TAB PO SCH (22:22)
[2019-05-19] MEDS: ASPIRIN 81 MG ENTERIC TAB PO SCH (22:22)
[2019-05-19] MEDS: ENOXAPARIN 30 MG/0.3 ML SYR (J1650) SC SCH (22:23)
[2019-05-20] MEDS: IPRATROPIUM 0.5MG/ALBUTEROL 2.5MG INH SOL UD 3ML (DUONEB)(J7620) NEB SCH ×6 (00:07→21:06)
[2019-05-20] MEDS: methylPREDNISolone INJ 125 MG/2 ML VIAL (J2930) IV SCH ×2 (02:49→10:02)
[2019-05-20 06:59] LABS: HEMATOCRIT 40.1 % (36.0-47.0); HEMOGLOBIN 12.7 g/dl (12.0-15.5); MEAN CORPUSCULAR HEMOGLOBIN 31.2 pg (27.0-33.0); MEAN CORPUSCULAR HGB CONC 31.7 g/dl (32.0-36.5); MEAN CORPUSCULAR VOLUME 98.5 fl (80.0-96.0); PLATELET COUNT, AUTOMATED 227 10^3/uL (150-450); RED BLOOD COUNT 4.07 10^6/uL (4.00-5.40); WHITE BLOOD COUNT 8.9 10^3/uL (4.0-10.0)
[2019-05-20 07:26] LABS: ALBUMIN 3.6 GM/DL (3.2-5.2); BILIRUBIN,TOTAL 0.4 MG/DL (0.2-1.0); CALCIUM LEVEL 9.2 MG/DL (8.8-10.2); CREATININE FOR GFR 1.37 MG/DL (0.55-1.30); GLOMERULAR FILTRATION RATE 39.5 (>32); MAGNESIUM LEVEL 2.1 MG/DL (1.8-2.4); TOTAL PROTEIN 7.5 GM/DL (6.4-8.2)
[2019-05-20] MEDS: HumaLOG INSULIN (NovoLOG) PER UNIT SC SCH ×4 (08:03→21:00)
--- NOTE | 2019-05-20 08:50 | REP ---
CT ANGIOGRAM CHEST: TECHNIQUE: Axial contrast enhanced images from the thoracic inlet to the upper abdomen using 100 mL Isovue 370 intravenous contrast material with multiplanar reformations. There is no CT evidence of pulmonary embolism. There is no evidence of thoracic aortic aneurysm or dissection. The heart is mildly enlarged. There is no pleural or pericardial effusion. There are a few mildly enlarged mediastinal lymph nodes which are stable compared to the prior study of 09/13/2018. There is diffuse moderate interstitial fibrosis in both lungs with some mild honeycombing in the lower lobes. I see no definite acute infiltrate. There are degenerative changes of the spine. IMPRESSION: No evidence of pulmonary embolism or aortic dissection. Mild mediastinal adenopathy is stable. There is mild cardiomegaly. There is no pleural or pericardial effusion. There is diffuse interstitial fibrosis without definite acute infiltrate. Electronically Signed by Chino Quinn MD 05/20/2019 09:16 A
[2019-05-20] MEDS ORDERED: FUROSEMIDE 40 MG TAB PO SCH (09:00)
--- NOTE | 2019-05-20 09:16 | REP ---
CT ABDOMEN AND PELVIS WITH IV CONTRAST: TECHNIQUE: Axial contrast enhanced images from the lung bases to the pubic symphysis using 100 mL Isovue 370 intravenous contrast material with multiplanar reformations. The liver demonstrates no mass. There is a 1 cm gallstone in the gallbladder without gallbladder wall edema or biliary dilatation. The spleen, adrenals and pancreas are unremarkable. There are bilateral renal cysts. There is no hydronephrosis. There is no abdominal aortic aneurysm. There is no adenopathy. There is no free air or free fluid. There is no bowel wall thickening. There is no appendicitis. There is sigmoid diverticulosis without acute diverticulitis. No definite pelvic mass is seen. There is streak artifact from a right hip prosthesis which somewhat limits evaluation of right pelvic structures. There are degenerative changes of the spine. IMPRESSION: 1 cm gallstone is seen in the gallbladder without wall edema, biliary dilatation or free fluid. No free air. Sigmoid diverticulosis without acute diverticulitis. No evidence of appendicitis. No free air or free fluid. Electronically Signed by Chino Quinn MD 05/20/2019 09:36 A
[2019-05-20 09:21] LABS: CK-MB VALUE MASS 1.4 NG/ML (<3.6); MB/CK RELATIVE INDEX 3.18 (< OR =4); TROPONIN I 0.24 NG/ML (< 0.10)
[2019-05-20] MEDS: BENAZEPRIL 20 MG TAB PO SCH (10:01)
[2019-05-20] MEDS: DOCUSATE SODIUM 100 MG CAP PO SCH ×2 (10:01→21:32)
[2019-05-20] MEDS: METOPROLOL SUCC (TopROL XL) 100MG *XL* TAB PO SCH (10:01)
[2019-05-20] MEDS: amLODIPine 10 MG TAB PO SCH (10:02)
[2019-05-20] MEDS: FUROSEMIDE 40 MG/4 ML VIAL (J1940) IV SCH ×2 (10:02→17:56)
[2019-05-20 14:00] VITALS: BP 132/65
--- NOTE | 2019-05-20 14:53 | IPNPDOC ---
Subjective Date Seen The patient was seen on 05/20/19. Objective Physical Examination General Exam: Positive: Alert, Cooperative Eye Exam: Positive: PERRLA, Conjunctiva & lids normal ENT Exam: Positive: Atraumatic, Mucous membr. moist/pink Neck Exam: Positive: Supple Chest Exam: Positive: Wheezing, Diminished Heart Exam: Positive: Rate Normal, Normal S1, Normal S2 Abdomen Exam: Positive: Normal bowel sounds Extremity Exam: Positive: Normal pulses Neuro Exam: Positive: Normal Gait, Strength at 5/5 X4 ext, Normal Tone, Sensation Intact Psych Exam: Positive: Mental status NL, Mood NL, Oriented x 3 Assessment /Plan Problems (1) COPD exacerbation Status: Acute Problem Text: Admit to MedSur with telemetry Saline lock Solu-Medrol 60 mg IV every 8 hours DuoNeb every 4 hours Proventil neb every hour when necessary Continue home meds Pulmonary consult if no improvement in symptoms with the current regimen, she'll sees Dr. Jordan as outpatient DVT prophylaxis with Lovenox Out of bed as tolerated 2 g sodium diet (2) Pulmonary fibrosis Status: Chronic Problem Text: As above Plan/VTE VTE Prophylaxis Ordered?: Yes VS, I&O, 24H, Fishbone Vital Signs/I&O Vital Signs Date Time Temp Pulse Resp B/P (MAP) Pulse Ox O2 Delivery O2 Flow Rate FiO2 05/20/19 13:22 97.9 68 16 132/62 (85) 95 Nasal Cannula 4.0 Laboratory Data 24H LABS Laboratory Tests 2 05/19/19 18:12: Total Creatine Kinase 69, Creatine Kinase MB < 1.0, Creatine Kinase MB Relative Index 1.45, Troponin I 0.35H 05/19/19 21:59: Bedside Glucose (Misc Panel) 159H 05/20/19 06:46: Total Creatine Kinase 44, Creatine Kinase MB 1.4, Creatine Kinase MB Relative Index 3.18, Troponin I 0.24#H, Nucleated Red Blood Cells % (auto) 0.0, Anion Gap 9, Glomerular Filtration Rate 39.5, Blood Urea Nitrogen 24H, Creatinine 1.37H, Sodium Level 138, Potassium Level 4.0, Chloride Level 104, Carbon Dioxide Level 25, Calcium Level 9.2, Aspartate Amino Transf (AST/SGOT) 19, Alanine Aminotransferase (ALT/SGPT) 27, Alkaline Phosphatase 61, Total Bilirubin 0.4, Total Protein 7.5, Albumin 3.6, Magnesium Level 2.1, Albumin/Globulin Ratio 0.92L 05/20/19 07:20: Bedside Glucose (Misc Panel) 182H 05/20/19 12:10: Bedside Glucose (Misc Panel) 304H CBC/BMP Laboratory Tests 05/20/19 06:46 Red Blood Count 4.07, Mean Corpuscular Volume 98.5 H, Mean Corpuscular Hemoglobin 31.2, Mean Corpuscular Hemoglobin Concent 31.7 L, Red Cell Distribution Width 14.5, Calcium Level 9.2, Aspartate Amino Transf (AST/SGOT) 19, Alanine Aminotransferase (ALT/SGPT) 27, Total Creatine Kinase 44, Alkaline Phosphatase 61, Total Bilirubin 0.4, Total Protein 7.5, Albumin 3.6 Microbiology Microbiology 05/19/19 Blood Culture, Received Pending 05/19/19 Blood Culture - Preliminary, Resulted No growth after 24 hours . All specim... 05/19/19 Respiratory Virus Panel (PCR) ([facility]) - Final, Complete ISABEL STACY PGY-1 May 20, 2019 14:53
[2019-05-20] MEDS: ATORVASTATIN 20 MG TAB PO SCH (21:32)
[2019-05-20] MEDS: ASPIRIN 81 MG ENTERIC TAB PO SCH (21:32)
[2019-05-20] MEDS: ENOXAPARIN 30 MG/0.3 ML SYR (J1650) SC SCH ×2 (21:33→22:24)
[2019-05-20 22:00] VITALS: BP 139/97
--- NOTE | 2019-05-20 22:12 | IPNPDOC ---
Subjective Date Seen The patient was seen on 05/20/19. Subjective Chief Complaint/HPI Casi was seen and examined this afternoon while lying upright in bed. She states that for the past month she has had increasing exertional dyspnea. Last night, the exertional dyspnea as well as dyspnea at rest became severe enough to warrant a trip to the emergency department. Upon our visit, she was on 4 L of nasal cannula supplemental oxygen, which she states she has been on at home as well since July 2018.. She denies any recent illness, recent sick contacts, recent change in medication. She states she is seeing Dr. Chirinos in the past for her respiratory care but is in the process of transitioning to another provider. She states she did have a sleep study in the past but is unsure of the results. She states she has not had a bowel movement since Monday. General: Denies: Chills, Night Sweats Constitutional: Reports: Fatigue; Denies: Fever ENT: Denies: Head Aches Pulmonary: Reports: Cough (productive with white phlegm); Denies: Dyspnea Cardiovascular: Denies: Chest Pain, Palpitations Gastrointestinal: Reports: Vomiting (vomited 2 nights ago, pink appearing vomit); Denies: Nausea, Abdominal Pain, Diarrhea Genitourinary: Denies: Dysuria Musculoskeletal: Denies: Neck Pain, Back Pain Other systems Skin: Patient states her legs sometimes feel warm after activity and she returns to rest. This occurs bilaterally Objective Physical Examination General Exam: Positive: Alert, Cooperative ENT Exam: Positive: Atraumatic, Mucous membr. moist/pink Neck Exam: Positive: Supple; Negative: Lymphadenopathy Chest Exam: Positive: Rales (. Inspiratory crackles in bilateral lung bases posteriorly), Diminished; Negative: Clear to auscultation Heart Exam: Positive: Rate Normal, Normal S1, Normal S2 Abdomen Exam: Positive: Normal bowel sounds, Soft; Negative: Tenderness, Hepatospenomegaly, Mass Extremity Exam: Positive: Edema (1+ pitting edema of lower extremities bilaterally), Normal pulses (, 2+ radial and posterior tibial), Tenderness (, tender to palpation on distal lower extremities bilaterally) Neuro Exam: Positive: Strength at 5/5 X4 ext, Sensation Intact Psych Exam: Positive: Mental status NL, Mood NL, Oriented x 3 Assessment /Plan Assessment 1. Acute decompensated congestive heart failure -Patient currently on 40 mg bid po Lasix dose -Patient also currently on amlodipine 10 mg by mouth daily -Patient had elevated troponins of 0.36 on initial measurement, which then decreased to 0.35. On subsequent measurement. This is likely due to her fluid overload. The patient has had no chest pain or chest pressure throughout her stay thus far. -Patient is currently on 4 L of nasal cannula supplemental oxygen. Patient is receiving duo nebs every 4 hours She also has when necessary albuterol nebulizer for shortness of breath/wheezing -Patient's fluids will be held. Her I's and O's will be strictly monitored and her bed will be weighed daily -Patient had bilateral pitting edema with associated distal lower extremity tenderness on exam 2. Acute kidney injury likely secondary to fluid volume overload -Patient's creatinine was elevated at 1.09 and a subsequent measurement increased to 1.37. The patient's baseline is about 1. -We will follow-up with repeat BMP and continue with Lasix for diuresis -Patient also receiving Benazepril at this time 3. Chronic pulmonary fibrosis -Patient had bilateral lower lung lobe inspiratory crackles posteriorly -Patient has albuterol when necessary nebulizer as well as DuoNeb treatments. Patient is also currently on 4 L of nasal cannula supplemental oxygen. -Patient is being actively diuresed as she continues to urinate all fluid, we will assess her respiratory status -A respiratory panel and 2 blood cultures were ordered when she was thought to have a COPD diagnosis and subsequent exacerbation. Looking through the patient's past medical record, there is no evidence of a COPD diagnosis. The patient did not state that she has been diagnosed with COPD. As a result of this patient was taken off of steroid dose 4. Essential hypertension -Patient receiving metoprolol and benazepril; patient is also being actively diuresis with Lasix and is on 10 mg by mouth amlodipine daily -Continue to monitor patient's vitals 5. DM II -Continue with sliding scale insulin protocol. Continue to monitor patient's s abelino glucose and BMP measurements 6. Hyperlipidemia -Continue with patient's home atorvastatin 7. DVT prophylaxis -Patient receiving 30 mg of Lovenox subcutaneously daily 8. Rheumatoid Arthritis not on any chronic meds. Plan/VTE VTE Prophylaxis Ordered?: Yes VS, I&O, 24H, Fishbone Vital Signs/I&O Vital Signs Date Time Temp Pulse Resp B/P (MAP) Pulse Ox O2 Delivery O2 Flow Rate FiO2 7/22/19 14:00 97.5 73 20 132/65 (87) 90 05/20/19 13:22 Nasal Cannula 4.0 Laboratory Data 24H LABS Laboratory Tests 2 05/19/19 21:59: Bedside Glucose (Misc Panel) 159H 05/20/19 06:46: Nucleated Red Blood Cells % (auto) 0.0, Anion Gap 9, Glomerular Filtration Rate 39.5, Blood Urea Nitrogen 24H, Creatinine 1.37H, Sodium Level 138, Potassium Level 4.0, Chloride Level 104, Carbon Dioxide Level 25, Calcium Level 9.2, Aspartate Amino Transf (AST/SGOT) 19, Alanine Aminotransferase (ALT/SGPT) 27, Total Creatine Kinase 44, Alkaline Phosphatase 61, Total Bilirubin 0.4, Total Protein 7.5, Albumin 3.6, Magnesium Level 2.1, Creatine Kinase MB 1.4, Creatine Kinase MB Relative Index 3.18, Troponin I 0.24#H, Albumin/Globulin Ratio 0.92L 05/20/19 07:20: Bedside Glucose (Misc Panel) 182H 05/20/19 12:10: Bedside Glucose (Misc Panel) 304H 05/20/19 16:42: Bedside Glucose (Misc Panel) 139H 05/20/19 19:58: Bedside Glucose (Misc Panel) 211H CBC/BMP Laboratory Tests 05/20/19 06:46 Red Blood Count 4.07, Mean Corpuscular Volume 98.5 H, Mean Corpuscular Hemoglobin 31.2, Mean Corpuscular Hemoglobin Concent 31.7 L, Red Cell Distribution Width 14.5, Calcium Level 9.2, Aspartate Amino Transf (AST/SGOT) 19, Alanine Aminotransferase (ALT/SGPT) 27, Total Creatine Kinase 44, Alkaline Phosphatase 61, Total Bilirubin 0.4, Total Protein 7.5, Albumin 3.6 Microbiology Microbiology 05/19/19 Blood Culture - Preliminary, Resulted No growth after 24 hours . All specim... 05/19/19 Blood Culture - Preliminary, Resulted No growth after 24 hours . All specim... 05/19/19 Respiratory Virus Panel (PCR) ([facility]) - Final, Complete Attending Note I have personally seen and examined the patient this am. I agree with the finding and the plan of care as documented above in the resident's/ medical student's note. Sob due to diastolic CHF exacerbation continue with IV lasix. ISABEL STACY PGY-1 May 20, 2019 22:12 JESU ZAPATA MD May 20, 2019 23:38
[2019-05-21] MEDS: IPRATROPIUM 0.5MG/ALBUTEROL 2.5MG INH SOL UD 3ML (DUONEB)(J7620) NEB SCH ×7 (00:16→22:50)
[2019-05-21 06:00] VITALS: BP 143/68
[2019-05-21] MEDS: METOPROLOL SUCC (TopROL XL) 100MG *XL* TAB PO SCH (07:41)
[2019-05-21 07:51] LABS: BASO % 0.1 % (0.0-1.0); EOS % 0.1 % (0.0-3.0); HEMATOCRIT 35.5 % (36.0-47.0); HEMOGLOBIN 11.6 g/dl (12.0-15.5); LYMPH % 5.5 % (24.0-44.0); MEAN CORPUSCULAR HEMOGLOBIN 30.8 pg (27.0-33.0); MEAN CORPUSCULAR HGB CONC 32.7 g/dl (32.0-36.5); MEAN CORPUSCULAR VOLUME 94.2 fl (80.0-96.0); MONO # 1.5 10^3/uL (0.0-0.8); MONO % 7.9 % (0.0-5.0); NEUTROPHILS # 15.8 10^3/uL (1.8-7.7); NEUTROPHILS % 85.8 % (36.0-66.0); PLATELET COUNT, AUTOMATED 235 10^3/uL (150-450); RED BLOOD COUNT 3.77 10^6/uL (4.00-5.40); WHITE BLOOD COUNT 18.4 10^3/uL (4.0-10.0)
[2019-05-21 07:54] LABS: CREATININE FOR GFR 1.04 MG/DL (0.55-1.30); GLOMERULAR FILTRATION RATE 54.3 (>32); POTASSIUM SERUM 4.3 MEQ/L (3.5-5.1)
[2019-05-21 08:12] VITALS: BP 124/62
--- NOTE | 2019-05-21 08:42 | IPNPDOC ---
Subjective Date Seen The patient was seen on 05/21/19. Objective Physical Examination General Exam: Positive: Alert, Cooperative ENT Exam: Positive: Atraumatic, Mucous membr. moist/pink Neck Exam: Positive: Supple; Negative: Lymphadenopathy Chest Exam: Positive: Rales (. Inspiratory crackles in bilateral lung bases posteriorly), Diminished; Negative: Clear to auscultation Heart Exam: Positive: Rate Normal, Normal S1, Normal S2 Abdomen Exam: Positive: Normal bowel sounds, Soft; Negative: Tenderness, Hepatospenomegaly, Mass Extremity Exam: Positive: Edema (1+ pitting edema of lower extremities bilaterally), Normal pulses (, 2+ radial and posterior tibial), Tenderness (, tender to palpation on distal lower extremities bilaterally) Neuro Exam: Positive: Strength at 5/5 X4 ext, Sensation Intact Psych Exam: Positive: Mental status NL, Mood NL, Oriented x 3 Assessment /Plan Plan/VTE VTE Prophylaxis Ordered?: Yes VS, I&O, 24H, Fishbone Vital Signs/I&O Vital Signs Date Time Temp Pulse Resp B/P (MAP) Pulse Ox O2 Delivery O2 Flow Rate FiO2 05/21/19 08:12 63 124/62 (82) 05/21/19 06:00 97.5 18 100 2.0 05/20/19 13:22 Nasal Cannula I&O- Last 24 Hours up to 6 AM 05/21/19 06:00 Intake Total 1730 ml Output Total 550 ml Balance 1180 ml Laboratory Data 24H LABS Laboratory Tests 2 05/20/19 12:10: Bedside Glucose (Misc Panel) 304H 05/20/19 16:42: Bedside Glucose (Misc Panel) 139H 05/20/19 19:58: Bedside Glucose (Misc Panel) 211H 05/21/19 06:32: Bedside Glucose (Misc Panel) 129H 05/21/19 07:06: Immature Granulocyte % (Auto) 0.6, White Blood Count 18.4H, Red Blood Count 3.77L, Hemoglobin 11.6L, Hematocrit 35.5L, Mean Corpuscular Volume 94.2, Mean Corpuscular Hemoglobin 30.8, Mean Corpuscular Hemoglobin Concent 32.7, Red Cell Distribution Width 15.1H, Platelet Count 235, Neutrophils (%) (Auto) 85.8H, Lymphocytes (%) (Auto) 5.5L, Monocytes (%) (Auto) 7.9H, Eosinophils (%) (Auto) 0.1, Basophils (%) (Auto) 0.1, Neutrophils # (Auto) 15.8H, Lymphocytes # (Auto) 1.0L, Monocytes # (Auto) 1.5H, Eosinophils # (Auto) 0.0, Basophils # (Auto) 0.0, Nucleated Red Blood Cells % (auto) 0.0, Anion Gap 6L, Glomerular Filtration Rate 54.3, Blood Urea Nitrogen 33H, Creatinine 1.04, Sodium Level 139, Potassium Level 4.3, Chloride Level 104, Carbon Dioxide Level 29, Calcium Level 9.0 CBC/BMP Laboratory Tests 05/21/19 07:06 Red Blood Count 3.77 L, Mean Corpuscular Volume 94.2, Mean Corpuscular Hemoglobin 30.8, Mean Corpuscular Hemoglobin Concent 32.7, Red Cell Distribution Width 15.1 H, Neutrophils (%) (Auto) 85.8 H, Lymphocytes (%) (Auto) 5.5 L, Monocytes (%) (Auto) 7.9 H, Eosinophils (%) (Auto) 0.1, Basophils (%) (Auto) 0.1, Neutrophils # (Auto) 15.8 H, Lymphocytes # (Auto) 1.0 L, Monocytes # (Auto) 1.5 H, Eosinophils # (Auto) 0.0, Basophils # (Auto) 0.0, Calcium Level 9.0 Microbiology Microbiology 05/19/19 Blood Culture - Preliminary, Resulted No growth after 24 hours . All specim... 05/19/19 Blood Culture - Preliminary, Resulted No growth after 24 hours . All specim... 05/19/19 Respiratory Virus Panel (PCR) ([facility]) - Final, Complete Attending Note Attending Note I have personally seen and examined the patient this am. I agree with the finding and the plan of care as documented above in the resident's note. ISABEL STACY PGY-1 May 21, 2019 08:42 JESU ZAPATA MD May 21, 2019 16:54
[2019-05-21] MEDS: FUROSEMIDE 40 MG/4 ML VIAL (J1940) IV SCH ×2 (08:50→16:51)
[2019-05-21] MEDS: HumaLOG INSULIN (NovoLOG) PER UNIT SC SCH ×4 (08:51→21:00)
[2019-05-21] MEDS: BENAZEPRIL 20 MG TAB PO SCH (08:52)
[2019-05-21] MEDS: DOCUSATE SODIUM 100 MG CAP PO SCH (08:52)
[2019-05-21] MEDS: amLODIPine 10 MG TAB PO SCH (08:53)
[2019-05-21] MEDS ORDERED: PILL CUTTER 1 EACH XX PRN (10:15)
[2019-05-21 14:00] VITALS: BP 124/66
--- NOTE | 2019-05-21 17:07 | IPNPDOC ---
Text Note Date of Service The patient was seen on 05/21/19. NOTE S: Pt examined at bedside. Is feeling slightly better today, although still having shortness of breath. No events overnight. No chest pain, fever, chills, nausea, vomiting, abdominal pain. States she is not making excessive amounts of urine despite her IV Lasix. O: PE: Vitals: see below General: NAD, A&O, resting comfortably HEENT: NCAT, EOMI, anicteric sclera, MMM CV: RRR, no murmurs RESP: Inspiratory and expiratory crackles, baseline pulmonary fibrosis ABD: soft, NT, ND. Benign EXTREMITIES: 2+ radial pulses b/l, able to move all extremities, trace lower extremity edema NEURO: no deficits or acute changes A/P: 79-year-old female here for gradually worsening shortness of breath, in fluid overload on admission. Shortness of breath 2/2 acutely decompensated diastolic CHF peripheral edema and elevated BNP, cardiomegaly on imaging. Unlikely infectious given afebrile, negative blood cultures and respiratory panel Most recent echo 09/18/2018 reveals normal EF 60-65%, diastolic dysfunction, moderate pulmonary hypertension Patient reportedly put out only 250 mL urine yesterday, however I suspect this i s not accurate monitor strict I's and O's, daily weights, 1800 mL fluid restriction will increase diuretics: IV Lasix 40bid to 60bid and monitor vol status & breathing Leukocytosis Normal on admission her up to 18 today, likely 2/2 few doses of IV steroids she received Patient afebrile and is clinically improving. Monitor AKHIL in setting of CKD III Resolved with diuresis. Likely 2/2 hypervolemic status Back at baseline CR today Pulmonary fibrosis Chronically on 4L NC, which she is on currently continue regular nebs/inhalers normally follows Dr. Chirinos HLD cont ASA/statin NIDDM2 Hold home metformin. ISS inpatient HTN Continue amlodipine, benazepril, metoprolol OA & RA pain controlled DVT ppx: renally-dosed Lovenox DISPO: Continue diuresis. Monitor respiratory in volume status. Likely DC home 24-48 hours. VS,Fishbone, I+O VS, Fishbone, I+O Laboratory Tests 05/21/19 07:06 Red Blood Count 3.77 L, Mean Corpuscular Volume 94.2, Mean Corpuscular Hemoglobin 30.8, Mean Corpuscular Hemoglobin Concent 32.7, Red Cell Distribution Width 15.1 H, Neutrophils (%) (Auto) 85.8 H, Lymphocytes (%) (Auto) 5.5 L, Monocytes (%) (Auto) 7.9 H, Eosinophils (%) (Auto) 0.1, Basophils (%) (Auto) 0.1, Neutrophils # (Auto) 15.8 H, Lymphocytes # (Auto) 1.0 L, Monocytes # (Auto) 1.5 H, Eosinophils # (Auto) 0.0, Basophils # (Auto) 0.0, Calcium Level 9.0 Vital Signs Date Time Temp Pulse Resp B/P (MAP) Pulse Ox O2 Delivery O2 Flow Rate FiO2 05/21/19 14:00 97.7 56 19 124/66 (85) 96 4.0 05/20/19 13:22 Nasal Cannula l I&O- Last 24 Hours up to 6 AM 05/21/19 06:00 Intake Total 1730 ml Output Total 550 ml Balance 1180 ml GME ATTESTATION GME ATTESTATION My faculty preceptor for this patient encounter was physically present during the encounter and was fully available. All aspects of the patient interview, examination, medical decision making process, and medical care plan development were reviewed and approved by the faculty preceptor. The faculty preceptor is aware and concurs with the plan as stated in the body of this note and will att est to such by his/her cosignature. MEJIA AMBROSIO DO May 21, 2019 17:07
[2019-05-21 22:00] VITALS: BP 116/69
[2019-05-21] MEDS: SENOKOT S TAB PO SCH (22:05)
[2019-05-21] MEDS: ASPIRIN 81 MG ENTERIC TAB PO SCH (22:06)
[2019-05-21] MEDS: ATORVASTATIN 20 MG TAB PO SCH (22:06)
[2019-05-21] MEDS: ENOXAPARIN 30 MG/0.3 ML SYR (J1650) SC SCH (22:07)
--- NOTE | 2019-05-21 23:18 | ECGEPIP ---
[facility] Test Date: 2019-05-20 Pat Name: ANALILIA CHUA Department: Room: [place] [address] Gender: Female [employer]ter [employer]: adebayo : 1940 Requested By: MEJIA AMBROSIO Order Number: [id number] Reading MD: Hai Ortiz Measurements Intervals [place] Rate: 91 P: 40 FL: 180 QRS: 22 QRSD: 95 T: 60 QT: 352 QTc: 434 Interpretive Statements SINUS RHYTHM NONSPECIFIC ST & T-WAVE ABNORMALITY Increased heart rate compared with 05/19/2019 at 1740 hrs. Electronically Signed on 05-21-2019 23:18:34 EDT by Hai Ortiz
[2019-05-22] MEDS: IPRATROPIUM 0.5MG/ALBUTEROL 2.5MG INH SOL UD 3ML (DUONEB)(J7620) NEB SCH ×3 (03:16→11:21)
[2019-05-22 05:58] LABS: BASO % 0.2 % (0.0-1.0); EOS # 0.1 10^3/uL (0.0-0.50); EOS % 1.1 % (0.0-3.0); HEMATOCRIT 38.5 % (36.0-47.0); HEMOGLOBIN 12.7 g/dl (12.0-15.5); LYMPH # 2.2 10^3/uL (1.5-4.5); LYMPH % 19.4 % (24.0-44.0); MEAN CORPUSCULAR HEMOGLOBIN 31.7 pg (27.0-33.0); MONO # 1.1 10^3/uL (0.0-0.8); MONO % 9.5 % (0.0-5.0); NEUTROPHILS # 7.8 10^3/uL (1.8-7.7); NEUTROPHILS % 69.1 % (36.0-66.0); PLATELET COUNT, AUTOMATED 243 10^3/uL (150-450); RED BLOOD COUNT 4.01 10^6/uL (4.00-5.40); WHITE BLOOD COUNT 11.3 10^3/uL (4.0-10.0)
[2019-05-22 06:00] VITALS: BP 142/82
[2019-05-22 06:24] LABS: CALCIUM LEVEL 8.6 MG/DL (8.8-10.2); CREATININE FOR GFR 1.1 MG/DL (0.55-1.30); GLOMERULAR FILTRATION RATE 50.9 (>32); POTASSIUM SERUM 3.5 MEQ/L (3.5-5.1)
[2019-05-22] MEDS: METOPROLOL SUCC (TopROL XL) 100MG *XL* TAB PO SCH (07:24)
[2019-05-22] MEDS: HumaLOG INSULIN (NovoLOG) PER UNIT SC SCH ×2 (07:27→12:00)
[2019-05-22] MEDS: FUROSEMIDE 40 MG/4 ML VIAL (J1940) IV SCH (09:22)
[2019-05-22] MEDS: SENOKOT S TAB PO SCH (09:22)
[2019-05-22 09:23] VITALS: BP 142/82
[2019-05-22] MEDS: BENAZEPRIL 20 MG TAB PO SCH (09:23)
[2019-05-22] MEDS: amLODIPine 10 MG TAB PO SCH (09:23)
--- NOTE | 2019-05-22 17:43 | DS.PDOC ---
Discharge Summary General Date of Admission May 20, 2019 at 23:32 Date of Discharge 05/22/19 Attending Physician: HENRY HOWELL MD Discharge Summary DISCHARGE DIAGNOSIS: Acutely decompensated diastolic CHF Mildly elevated troponin 2/2 decompensated CHF AKHIL 2/2 hypervolemia SECONDARY DIAGNOSIS: 1. Pulmonary fibrosis, chronically 4L NC-follows Dr. Chirinos 2. Hyperlipidemia 3. NIDDM 2 4. Hypertension 5. Osteoarthritis and rheumatoid arthritis PROCEDURES PERFORMED DURING STAY: None. CONSULTANTS: None HOSPITAL COURSE: 79-year-old female with baseline respiratory failure from pulmonary fibrosis, chronically on 4L NC, presented to ER for gradually worsening shortness of breath over the past 1 week. She endorsed orthopnea and exertional dyspnea. No recent illnesses, sick contacts or changes in meds. No fevers or chills or nausea or vomiting or chest pain. She was found to be hypervolemic on exam, with elevated BNP >4000 and cardiomegaly on imaging. She was admitted and started on IV diuretics. Of note, she had troponin of 0.36 that remained stable upon recheck. No ST changes on EKG or any cardiac complaints from patient; no major events on telemetry. This was likely 2/2 her decompensated heart failure. She was also noted to have an acute kidney injury with creatinine of 1.37, with baseline being around 1. Her shortness of breath and renal function improved with diuresis. She cleared PT, felt back to her baseline, and was cleared for discharge. No complications during her stay. Blood cultures and respiratory panel negative. She was counseled on strict salt and 1800 mL fluid restriction on discharge, to increase home oxygen from 4 L as needed, and follow up with regular doctors. DISCHARGE MEDICATIONS: Please see below. ALLERGIES: Please see below. SUBJECTIVE: Patient feeling much improved, back to her normal baseline, eager to go home. otherwise patient denies chest pain, shortness, breath, nausea, vomiting, fevers, chills OBJECTIVE: PHYSICAL EXAMINATION: VITAL SIGNS: Please see below. GENERAL: Pleasant, sitting up in bed awake alert oriented speaking in complete sentences no acute distress HEENT: Moist mucous membranes no elevation and CVP CARDIOVASCULAR: S1 S2 regular no additional heart sounds appreciated. RESPIRATORY: Inspiratory and expiratory crackles, baseline pulmonary fibrosis, no accessory muscle use ABDOMINAL: Bowel sounds present abdomen soft and non-tender EXTREMITIES: [No clubbing, cyanosis, trace lower extremity edema NEUROLOGICAL: Spontaneously moves all 4 extremities cranial 2 through 12 grossly intact, no gross focal deficits appreciated PSYCHOLOGICAL: Appropriate LABORATORY DATA, MICROBIOLOGY: Please see below. IMAGING STUDIES: * 05/19/2019 CTA: No evidence of pulmonary embolism or aortic dissection. Mild mediastinal adenopathy is stable. There is mild cardiomegaly. There is no pleural or pericardial effusion. There is diffuse interstitial fibrosis without definite acute infiltrate. * 05/19/2019 CT abdomen pelvis: 1 cm gallstone is seen in the gallbladder without wall edema, biliary dilatation or free fluid. No free air. Sigmoid diverticulosis without acute diverticulitis. No evidence of appendicitis. No free air or free fluid. ECHOCARDIOGRAM: 09/18/2018 reveals normal EF 60-65%, diastolic dysfunction, moderate pulmonary hypertension DVT prophylaxis ordered: Renally dosed Lovenox DISPOSITION: Home with home nursing and PT DISCHARGE CONDITION: Improved and Stable. PROGNOSIS: Fair FOLLOW UP: PCP 1 week, pulmonary on regular basis ACTIVITY: As prior to admission. DIET: As prior to admission TIME SPENT ON DISCHARGE: 50 minutes Vital Signs/I&Os Vital Signs Date Time Temp Pulse Resp B/P (MAP) Pulse Ox O2 Delivery O2 Flow Rate FiO2 05/22/19 10:00 4.0 05/22/19 09:23 142/82 05/22/19 09:23 50 05/22/19 06:00 97.0 19 95 05/20/19 13:22 Nasal Cannula I&O- Last 24 Hours up to 6 AM 05/22/19 06:00 Intake Total 1440 ml Output Total 1650 ml Balance -210 ml Laboratory Data Labs 24H Laboratory Tests 2 05/21/19 20:21: Bedside Glucose (Misc Panel) 126H 05/22/19 05:24: Immature Granulocyte % (Auto) 0.7, White Blood Count 11.3H, Red Blood Count 4.01, Hemoglobin 12.7, Hematocrit 38.5, Mean Corpuscular Volume 96.0, Mean Corpuscular Hemoglobin 31.7, Mean Corpuscular Hemoglobin Concent 33.0, Red Cell Distribution Width 15.1H, Platelet Count 243, Neutrophils (%) (Auto) 69.1H, Lymphocytes (%) (Auto) 19.4L, Monocytes (%) (Auto) 9.5H, Eosinophils (%) (Auto) 1.1, Basophils (%) (Auto) 0.2, Neutrophils # (Auto) 7.8H, Lymphocytes # (Auto) 2.2, Monocytes # (Auto) 1.1H, Eosinophils # (Auto) 0.1, Basophils # (Auto) 0.0, Nucleated Red Blood Cells % (auto) 0.0, Anion Gap 5L, Glomerular Filtration Rate 50.9, Blood Urea Nitrogen 34H, Creatinine 1.10, Sodium Level 140, Potassium Level 3.5, Chloride Level 104, Carbon Dioxide Level 31, Calcium Level 8.6L, BG-Miu-N-Type Natriuretic Peptide 2607H 05/22/19 11:58: Bedside Glucose (Misc Panel) 113H CBC/BMP Laboratory Tests 05/22/19 05:24 Red Blood Count 4.01, Mean Corpuscular Volume 96.0, Mean Corpuscular Hemoglobin 31.7, Mean Corpuscular Hemoglobin Concent 33.0, Red Cell Distribution Width 15.1 H, Neutrophils (%) (Auto) 69.1 H, Lymphocytes (%) (Auto) 19.4 L, Monocytes (%) (Auto) 9.5 H, Eosinophils (%) (Auto) 1.1, Basophils (%) (Auto) 0.2, Neutrophils # (Auto) 7.8 H, Lymphocytes # (Auto) 2.2, Monocytes # (Auto) 1.1 H, Eosinophils # (Auto) 0.1, Basophils # (Auto) 0.0, Calcium Level 8.6 L FSBS Laboratory Tests Test 05/21/19 20:21 05/22/19 11:58 Range/Units Bedside Glucose (Misc Panel) 126 113 83-110 MG/DL Microbiology Microbiology 05/19/19 Blood Culture - Preliminary, Resulted No Growth after 72 hours. All specime... 05/19/19 Blood Culture - Preliminary, Resulted No Growth after 72 hours. All specime... 05/19/19 Respiratory Virus Panel (PCR) (BLAKE) - Final, Complete Discharge Medications Scheduled Amlodipine Besylate (Amlodipine Besylate) 10 Mg Tablet, 10 MG PO DAILY, (Reported) Aspirin (Aspirin EC) 81 Mg Tab, 81 MG PO QHS, (Reported) Atorvastatin Calcium (Atorvastatin Calcium) 20 Mg Tab, 20 MG PO QHS, (Reported) Benazepril HCl (Benazepril HCl) 20 Mg Tab, 10 MG PO DAILY, (Reported) Ergocalciferol (Vitamin D2) (Drisdol) 50,000 Unit Capsule, 50,000 UNIT PO 1XWK, (Reported) MONDAYS Furosemide (Furosemide) 40 Mg Tab, 40 MG PO DAILY Metformin HCl (Metformin HCl) 1,000 Mg Tab, 1,000 MG PO BID, (Reported) Metoprolol Succinate (Metoprolol Succinate) 100 Mg Tab, 100 MG PO DAILY, (Reported) Allergies Coded Allergies: Sulfa (Sulfonamide Antibiotics) (Verified Allergy, Unknown, swelling, 05/19/19) GME ATTESTATION GME ATTESTATION My faculty preceptor for this patient encounter was physically present during the encounter and was fully available. All aspects of the patient interview, examination, medical decision making process, and medical care plan development were reviewed and approved by the faculty preceptor. The faculty preceptor is aware and concurs with the plan as stated in the body of this note and will attest to such by his/her cosignature. MEJIA AMBROSIO DO May 22, 2019 17:43
== END 2019-05-22 14:08 | disposition home or self-care (01) | DRG 291 ==
LOC: EDBD 12:29 → M ED 12:29 → M ED INP 20:33 → M MSPAV 05-20 13:36 → OBSVTOIN 05-20 23:32
PROVIDERS: ADMIT Internal Medicine; ATTEND Internal Medicine Nephrology
DX: I13.0 Hypertensive heart and chronic kidney disease with heart failure and stage 1 through stage 4 chronic kidney disease, or unspecified chronic kidney disease (principal); I50.33 Acute on chronic diastolic (congestive) heart failure; N17.9 Acute kidney failure, unspecified; J44.1 Chronic obstructive pulmonary disease with (acute) exacerbation; Z79.82 Long term (current) use of aspirin; Z79.899 Other long term (current) drug therapy; Z88.2 Allergy status to sulfonamides; E11.9 Type 2 diabetes mellitus without complications; E78.5 Hyperlipidemia, unspecified; M06.9 Rheumatoid arthritis, unspecified; D72.829 Elevated white blood cell count, unspecified; J84.10 Pulmonary fibrosis, unspecified; N18.3 Chronic kidney disease, stage 3 (moderate)

== ENCOUNTER → 2019-08-15 | Outpatient (CLI) | payer MEDICARE ==
[~2019-08-15] MED LIST changes: +DRIS50003 PO; +OMEP-221 PO
[2019-08-15 20:24] LABS: ALBUMIN 3.6 GM/DL (3.2-5.2); BILIRUBIN,TOTAL 0.7 MG/DL (0.2-1.0); CALCIUM LEVEL 9.4 MG/DL (8.8-10.2); CREATININE FOR GFR 1.19 MG/DL (0.55-1.30); GLOMERULAR FILTRATION RATE 46.5 (>32); POTASSIUM SERUM 5.1 MEQ/L (3.5-5.1); TOTAL PROTEIN 7.2 GM/DL (6.4-8.2)
[2019-08-15 20:33] LABS: TOTAL 25(OH) VITAMIN D 82.8 NG/ML (30.0-100.0)
== END ==
LOC: M WUC 17:12
PROVIDERS: ATTEND Nurse Practitioner Family
DX: R60.0 Localized edema (principal); I11.0 Hypertensive heart disease with heart failure; E11.9 Type 2 diabetes mellitus without complications; E55.9 Vitamin D deficiency, unspecified; I50.33 Acute on chronic diastolic (congestive) heart failure
CPT/HCPCS: 36415; 80053; 82306; 83880; 85379; 90682; G0008; G0463

== ENCOUNTER → 2019-08-16 | Outpatient (CLI) | payer MEDICARE ==
[~2019-08-16] MED LIST changes: +ISOVUE-370 76% 100ML VIAL (Q9967) As Ordered ONE; -OMEP-221 PO
--- NOTE | 2019-08-16 10:13 | REP ---
CT pulmonary angiogram: With IV contrast. History: The block see a, leg edema, pain, rule out pulmonary embolism. Comparison studies: Comparison chest CT May 19, 2019. Contrast dose: 75 ML of Isovue [address] technique: Helical scanning is acquired and overlapping 1.5 mm and contiguous 3 mm axial images are reformatted. In addition, maximum intensity projection and multiplanar re-formation images are generated in sagittal and coronal imaging projections. CT pulmonary angiographic findings: There is good opacification of the pulmonary arterial tree. There is no CT evidence of pulmonary embolism. The right atrium and right ventricle are dilated and there is reflux of contrast opacified blood into the intrahepatic vena cava and hepatic veins consistent with significant right heart failure. This however is unchanged from the May 19, 2019 prior study. There is no evidence of aortic aneurysm or dissection. Vascular calcifications noted. No pleural or pericardial effusion is seen. There is diffuse interstitial fibrosis pattern in the lung david which is unchanged. There are some areas of honeycombing in the lower lobes bilaterally as before. No infiltrate is seen. There are scattered mediastinal lymph nodes in the pretracheal/precarinal region and superiorly amongst the great vessels. These are not changed from the May 19, 2019 study. No adrenal lesion is seen. There are cysts in the kidneys in the upper poles bilaterally. There is left colonic diverticulosis. Impression: No CT evidence of pulmonary embolus. There is right atrial and right ventricular dilation with reflux of contrast opacified blood into the liver and the inferior vena cava consistent with significant right heart failure. This is unchanged however from May 19, 2019. There is evidence of COPD and pulmonary fibrosis. Stable mild mediastinal lymphadenopathy. Electronically Signed by Aime Manzano MD 08/16/2019 07:36 P
--- NOTE | 2019-08-16 13:58 | REP ---
Duplex extremity venous ultrasound: Right lower extremity. History: Right lower extremity edema. Rule out DVT. Findings: The deep veins are anechoic and fully compressible from the groin to the popliteal fossa in the right lower extremity. Color flow imaging is homogeneous. Spectral Doppler interrogation demonstrates intact respiratory variation in flow and normal manual augmentation of flow. There is no evidence of deep vein thrombosis. Impression: Negative right lower extremity duplex venous ultrasound. No evidence of deep vein thrombosis. Electronically Signed by Aime Manzano MD 08/16/2019 10:08 A
== END ==
LOC: M RAD 09:05
PROVIDERS: ATTEND Nurse Practitioner Family
DX: R09.02 Hypoxemia (principal); R60.0 Localized edema; M79.609 Pain in unspecified limb
CPT/HCPCS: 71275; 93971; Q9967

== ENCOUNTER 2019-09-02 16:52 | Inpatient (IN) | payer MEDICARE ==
[2019-09-01 23:00] VITALS: BP 119/72
[~2019-09-02] VITALS: Ht 149.9 cm; Wt 81.5 kg
[~2019-09-02 16:52] MED LIST changes: -ISOVUE-370 76% 100ML VIAL (Q9967) As Ordered ONE
[2019-09-02] MEDS ORDERED: OMEP-221 PO (17:03)
[2019-09-02] MEDS: IPRATROPIUM 0.5MG/ALBUTEROL 2.5MG INH SOL UD 3ML (DUONEB)(J7620) NEB PRN ×3 (17:42→18:14)
[2019-09-02 17:43] LABS: ABG BASE EXCESS 1.7 (-2.0-2.0); ABG HCO3 25.3 MEQ/L (22.0-26.0); ABG O2 SATURATION 92.8 % (95.0-99.0); ABG PARTIAL PRESSURE CO2 36.2 mmHg (35.0-45.0); ABG PARTIAL PRESSURE O2 65.2 mmHg (75.0-100.0); ABG STANDARD HCO3 25.9 MEQ/L (22.0-26.0); ABG TOTAL CO2 26.4 MEQ/L (23.0-31.0); ABG pH (ARTERIAL) 7.462 UNITS (7.350-7.450)
--- NOTE | 2019-09-02 17:45 | REP ---
Single view chest: 09/02/2019. Indication: Dyspnea. Comparison: 08/16/2019 and 12/03/2018. Findings: No new air space consolidation is present. There is no pleural effusion or pneumothorax. Poor inspiratory result and cardiomegaly are noted. Scoliosis is present. Chronically prominent interstitial markings are redemonstrated. Impression: No acute cardiopulmonary process detected. Electronically Signed by Juan Locke DO 09/02/2019 05:37 P
[2019-09-02 18:17] LABS: BASO % 0.6 % (0.0-1.0); EOS # 0.1 10^3/uL (0.0-0.5); EOS % 1.7 % (0.0-3.0); HEMATOCRIT 36.8 % (36.0-47.0); HEMOGLOBIN 11.6 g/dl (12.0-15.5); LYMPH # 0.8 10^3/uL (1.5-5.0); LYMPH % 11.5 % (24.0-44.0); MEAN CORPUSCULAR HEMOGLOBIN 30.9 pg (27.0-33.0); MEAN CORPUSCULAR HGB CONC 31.5 g/dl (32.0-36.5); MEAN CORPUSCULAR VOLUME 97.9 fl (80.0-96.0); MONO # 1.1 10^3/uL (0.0-0.8); MONO % 15.7 % (0.0-5.0); NEUTROPHILS # 4.9 10^3/uL (1.5-8.5); NEUTROPHILS % 69.9 % (36.0-66.0); PLATELET COUNT, AUTOMATED 162 10^3/uL (150-450); RED BLOOD COUNT 3.76 10^6/uL (4.00-5.40); WHITE BLOOD COUNT 7.1 10^3/uL (4.0-10.0)
[2019-09-02 18:46] LABS: BLOOD UREA NITROGEN 23 MG/DL (7-18); CALCIUM LEVEL 8.2 MG/DL (8.8-10.2); CARBON DIOXIDE LEVEL 28 MEQ/L (21-32); CHLORIDE LEVEL 99 MEQ/L (98-107); CK-MB VALUE MASS < 1.0 NG/ML (<3.6); CPK CREATINE PHOSPHOKINASE 128 U/L (26-192); CREATININE FOR GFR 1.19 MG/DL (0.55-1.30); GLOMERULAR FILTRATION RATE 46.5 (>32); GLUCOSE, FASTING 128 MG/DL (70-100); MB/CK RELATIVE INDEX 0.78 (< OR =4); POTASSIUM SERUM 4.1 MEQ/L (3.5-5.1); SODIUM LEVEL 137 MEQ/L (136-145); TROPONIN I 0.07 NG/ML (< 0.10)
[2019-09-02 19:42] LABS: NT-PRO BNP 9590 PG/ML (<450)
[2019-09-02] MEDS ORDERED: DEXTROSE 50% 50 ML SYRINGE IV PRN (20:45)
[2019-09-02] MEDS ORDERED: GLUCAGON FOR INJ 1 MG VIAL (J1610) SC PRN (20:45)
[2019-09-02] MEDS ORDERED: methylPREDNISolone INJ 125 MG/2 ML VIAL (J2930) IV ONE (20:45)
[2019-09-02] MEDS ORDERED: GLUCOSE 4 GM CHEW TABLET PO PRN (20:45)
[2019-09-02] MEDS: HumaLOG INSULIN (NovoLOG) PER UNIT SC SCH (21:00)
[2019-09-02] MEDS ORDERED: ENOXAPARIN 30 MG/0.3 ML SYR (J1650) SC SCH (21:00)
[2019-09-02] MEDS: LEVALBUTEROL 1.25 MG/0.5 ML CONCENTRATE NEB NEB SCH ×2 (21:08→23:34)
[2019-09-02 21:09] VITALS: O2SAT 94
[2019-09-02] MEDS ORDERED: FURO40TA2 PO (21:36)
[2019-09-02] MEDS: FUROSEMIDE 40 MG/4 ML VIAL (J1940) IV SCH (21:41)
[2019-09-02] MEDS ORDERED: ENOXAPARIN 30 MG/0.3 ML SYR (J1650) SC ONE (22:00)
[2019-09-02 22:30] VITALS: BP 119/72
[2019-09-02] MEDS: ATORVASTATIN 20 MG TAB PO SCH (23:41)
[2019-09-02] MEDS: ASPIRIN 81 MG ENTERIC TAB PO SCH (23:42)
[2019-09-02] MEDS: DOXYCYCLINE HYCLATE 100 MG in D5W MINI-BAG PLUS 100 ML IV SCH (23:42)
--- NOTE | 2019-09-02 23:42 | HPE ---
DATE OF ADMISSION: 09/02/2019 PRIMARY CARE PHYSICIAN: Jennifer Kim NP CHIEF COMPLAINT: Shortness of breath. HISTORY OF THE PRESENT ILLNESS: This is an 79-year-old female, FULL CODE, with a 1-week history of shortness of breath with cough productive of phlegm, white sputum, felt febrile at home, which was subjective for the first two days but has been afebrile since with on and off chills. Patient was nauseated without vomiting/diarrhea. Had a headache, especially when she coughs and cannot get her breath. No chest pain, pressure or tightness, palpitations. She did complain of dizziness, lightheadedness when she gets up too quickly and when she has a coughing spell. The patient lives with her son, has not been watching her salt intake. Son says that he cooks for her, but often times uses frozen or canned jars of food, alternating with fresh vegetables and produce. Patient does not have any added salt, but admits to having preserved ingredients most often. Patient does not drink a lot of water and is usually thirsty all the time. She does not, however, keep to a strict fluid restriction. She has noted increased lower extremity edema, unable to sleep flat on the bed and has been sleeping in her recliner, which she calls a catnapper, for the past 3 months and has gained about 20 pounds over 2 months' time. The patient has needed to increase her oxygen level to 4 liters currently. She says that she is allergic to albuterol and causes her heart to have palpitations and "she doesn't like it." And she does see Dr. Banks at the office with followup in 6-8 weeks. Her pulmonary function tests (PFTs) appear to be stable, according to the patient. She has not received any methotrexate in the past. Has a history of rheumatoid arthritis, only managed by Jennifer Kim, does not see a mail forwarding system markup clerk. Her pulmonary nodules apparently have been stable as well for the past few months that it has been followed. She otherwise denies bright red blood per rectum, melena, black tarry stools, hematemesis, or coffee ground emesis at home. She presents to the emergency room and is found to be 89% on 4 liters of oxygen. Chest x-ray 09/02/2019 shows no acute cardiopulmonary process. BNP is slightly elevated at 9590. Hospitalist was asked to admit for exacerbation of chronic pulmonary fibrosis, cor pulmonale with right-sided heart failure. Previous echocardiogram was August 2018, read by Dr. Hiram Mathews, shows moderate pulmonary hypertension and moderate tricuspid regurgitation. PAST MEDICAL HISTORY: Cor pulmonale. Right-sided heart failure. Last echo was in August 2018, shows a preserved ejection fraction with left ventricular diastolic dysfunction, ejection fraction (EF) of 60-65% with moderate pulmonary hypertension and moderate tricuspid regurgitation. Rheumatoid arthritis. Pulmonary fibrosis. Type 2 diabetes. Osteoarthritis. Fatty liver. Pulmonary nodules. Chronic hypoxic respiratory failure, usually on 3-4 liters of oxygen at home. Abnormal EKG with nonspecific ST-T wave abnormalities. PAST SURGICAL HISTORY: Right hip replacement. Right knee replacement. ALLERGIES: To SULFA. SOCIAL HISTORY: Lives with son who cooks for her. Patient worked for the [employer], retired. Has not had any alcoholic beverages in 20 years. Never smoked any cigarettes. She is a FULL CODE. Son is the healthcare proxy. FAMILY HISTORY: Father with emphysema, mother with coronary artery disease, myocardial infarction (RI), both of whom are . HOME MEDICATIONS: - chronically on 3-4 liters of oxygen. - Norvasc 10 mg daily - aspirin 81 mg daily - atorvastatin 20 mg nightly - benazepril 20 mg daily - Lasix 40 mg daily - metformin 1 gram twice a day - metoprolol 100 mg daily - omeprazole 40 mg daily REVIEW OF SYSTEMS: Per history of the present illness; 12-point system otherwise negative. PHYSICAL EXAMINATION: Temperature 98.4, pulse 76, respiratory rate 20, blood pressure 118/56, 94% on four liters nasal cannula. Generally, patient is awake, alert, oriented times three, answering questions appropriately. She had mild respiratory distress. Able to finish her sentences but somewhat labored when she gets to about 7-8 words. She is using mild accessory respiratory muscles. She is sitting at 45 degrees. No abnormal retractions. She has no tracheal deviations. No stridor on exam. Pupils round and reactive. Extraocular muscles are intact. Dry mucous membranes. Poor dentition with missing teeth. Lungs: Diminished with coarse breath sounds. Heart: S1, S2, sinus rhythm. She has a systolic ejection murmur at the left lower sternal border with sustained heave. Positive jugular venous distention. Abdomen is obese, soft, nontender, nondistended. Positive bowel sounds. No fluid wave. No rebound, guarding. No abdominal bruits. No costovertebral angle (CVA) tenderness. Extremities: 3+ pitting edema to the sacrum. LABORATORY DATA: White count 7, hemoglobin 11.6, hematocrit 36, platelet count 162, 69% neutrophils. Sodium 137, potassium 4, chloride 99, bicarbonate 28, BUN 23, creatinine 1.19, glucose 128, lactic acid 2.9, calcium 8.2, total CK 126, MB fraction less than 1, troponin 0.07, BNP 9590, TSH 2.060. Respiratory panel: Human Rhinovirus and Enterovirus positive. Two sets of blood cultures are pending. Chest x-ray: No acute cardiopulmonary process. Poor inspiratory effort. 08/[address] Hiram Mathews - moderate pulmonary hypertension, moderate tricuspid regurgitation, ejection fraction of 60-65% with preserved systolic function, positive left ventricular diastolic dysfunction. ASSESSMENT AND PLAN: This is an 79-year-old female with a history of rheumatoid arthritis, pulmonary fibrosis, pulmonary nodules, type 2 diabetes, osteoarthritis, obesity, body mass index (BMI) of 35.4, no documented obstructive sleep apnea, chronic hypoxic respiratory failure, usually on 3 liters of supplemental oxygen, presents to the emergency room with complaints of a 1-week history of shortness of breath with cough production, subjective fevers and chills, found to have Rhinovirus and Enterovirus on respiratory panel. Chest x-ray is negative. Admitted for cor pulmonale, right-sided heart failure secondary to moderate pulmonary hypertension, moderate tricuspid regurgitation due to noncompliance with diet and fluid intake, as well as exacerbation of her chronic pulmonary fibrosis. She will be admitted as an inpatient for two midnights for the following issues: 1. Acute exacerbation of pulmonary fibrosis. Patient will be given IV Solu-Medrol, supplemental oxygen to keep saturations 88-92%. Currently without any acute infiltrate on chest x-ray, but will give doxycycline for the anti-inflammatory effect, 100 mg twice a day and Bacid to decrease risk of Clostridium difficile infection or antibiotic-induced diarrhea. Rigorous handwashing due to common cold virus. 2. Chronic hypoxic respiratory failure secondary to exacerbation of pulmonary fibrosis and cor pulmonale with right-sided heart failure. Acute decompensated diastolic congestive heart failure. Patient is currently saturating well at 89-94%. Will keep the 4 liters for now. Treatment for cor pulmonale with IV Lasix, strict intake and output, fluid restriction, and daily weights, and treatment for pulmonary fibrosis with rapid tapering of steroids. 3. Acute diastolic heart failure exacerbation with cor pulmonale, right-sided heart failure due to moderate pulmonary hypertension from known history of pulmonary fibrosis. Patient admits to noncompliance with diet and salt intake, as well as fluid restriction. Son mostly does the cooking at home and has been using frozen as well as canned jars of sauces, which is most likely preserved in a significant amount of salt. She was placed on 2-gram salt restriction, strict intake and output and fluid restriction, daily weights, Lasix 40 mg IV every 6 hours to net negative balance of 1 liter. Due to blood pressure of 108-118 systolic, her metoprolol and Norvasc, as well as benazepril has been held to allow for enough blood pressure to diurese for increased perfusion to the kidneys and to decrease the risk of acute kidney injury. At this time, she will be continued on her home dose of aspirin and atorvastatin. 4. Dyslipidemia. Continue on atorvastatin. Check lipid panel in the morning. 5. Type 2 diabetes. Consistent carbohydrate, 2-gram sodium diet. Due to active congestive heart failure, her oral hypoglycemic agent, metformin, will be held until she is euvolemic. 6. Hypertension. Her metoprolol and benazepril will be held for now, as well as Norvasc will be held for now to allow enough blood pressure for diuresis. Should the blood pressure be greater than 150 on Lasix 40 mg every 6 hours, may resume lower doses of her benazepril to decrease her afterload and slowly titrate her home dose once she is euvolemic. 7. Rheumatoid arthritis with a history of pulmonary fibrosis. Patient denies any prior history of methotrexate use. She currently does not have a mail forwarding system markup clerk and has been managed by her primary care physician over the past few years and currently has no active issues. 8. Obesity with no documented history of obstructive sleep apnea, complicating her care. Check A1c and judicially control her blood pressure and lipids. 9. Code status: She is a FULL CODE. Healthcare proxy is her son. This has been reconfirmed with her at the bedside. Son is [employer], phone number is [phone]. 10. History of osteoarthritis with right hip and knee replacement. No acute issues at this time. 11. Deep vein thrombosis (DVT) prophylaxis. On Lovenox injection, renally dose. MTDD
[2019-09-03 03:04] LABS: CK-MB VALUE MASS 1.2 NG/ML (<3.6); MB/CK RELATIVE INDEX 0.66 (< OR =4); TROPONIN I 0.04 NG/ML (< 0.10)
[2019-09-03] MEDS: FUROSEMIDE 40 MG/4 ML VIAL (J1940) IV SCH (03:15)
[2019-09-03 03:20] VITALS: BP 95/55
[2019-09-03] MEDS: LEVALBUTEROL 1.25 MG/0.5 ML CONCENTRATE NEB NEB SCH ×5 (04:04→19:42)
[2019-09-03] MEDS ORDERED: FUROSEMIDE 40 MG/4 ML VIAL (J1940) IV SCH (06:00)
[2019-09-03 06:12] VITALS: BP 108/61
--- NOTE | 2019-09-03 06:23 | ECGEPIP ---
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
[2019-09-03 07:04] LABS: HEMATOCRIT 36.3 % (36.0-47.0); HEMOGLOBIN 11.4 g/dl (12.0-15.5); MEAN CORPUSCULAR HEMOGLOBIN 30.2 pg (27.0-33.0); MEAN CORPUSCULAR HGB CONC 31.4 g/dl (32.0-36.5); MEAN CORPUSCULAR VOLUME 96.3 fl (80.0-96.0); PLATELET COUNT, AUTOMATED 158 10^3/uL (150-450); RED BLOOD COUNT 3.77 10^6/uL (4.00-5.40); WHITE BLOOD COUNT 3.8 10^3/uL (4.0-10.0)
[2019-09-03 07:27] LABS: CALCIUM LEVEL 8.5 MG/DL (8.8-10.2); CREATININE FOR GFR 1.06 MG/DL (0.55-1.30); GLOMERULAR FILTRATION RATE 53.1 (>32); MAGNESIUM LEVEL 1.5 MG/DL (1.8-2.4); POTASSIUM SERUM 3.7 MEQ/L (3.5-5.1)
[2019-09-03] MEDS: LACTOBACILLUS ACIDOPHILUS CAP (BACID) PO SCH ×2 (08:22→18:46)
[2019-09-03] MEDS: ENOXAPARIN 30 MG/0.3 ML SYR (J1650) SC SCH (08:24)
[2019-09-03] MEDS: HumaLOG INSULIN (NovoLOG) PER UNIT SC SCH ×5 (09:47→21:00)
[2019-09-03] MEDS: DOXYCYCLINE HYCLATE 100 MG in D5W MINI-BAG PLUS 100 ML IV SCH ×2 (11:03→22:09)
[2019-09-03] MEDS ORDERED: POTASSIUM CHLORIDE 10 MEQ SR TABLET PO ONE (13:30)
[2019-09-03 14:00] VITALS: BP 131/75
[2019-09-03] MEDS: MAG SULF 1GM/100ML (MAG RUN) 1 GM in IV 1 EA IV SCH ×4 (14:56→18:47)
--- NOTE | 2019-09-03 17:18 | IPNPDOC ---
Date Seen The patient was seen on 09/03/19. Progress Note SUBJECTIVE: 79-year-old female with past medical history of cor pulmonale, rheumatoid arthritis, pulmonary fibrosis (oxygen dependent, 4 L by nasal cannula), diabetes and hypertension is admitted for acute exacerbation of pulmonary fibrosis secondary to human rhinovirus. She continues to have dry cough, reports slight improvement in dyspnea since admission, no others complaints at this time. She does report worsening lower extremity edema over the past few days to weeks, treated with IV Lasix, with good urine output. She denies any chest pain, vomiting, abdominal pain or diarrhea. 10 point review of system was negative except for above PHYSICAL EXAMINATION: VITAL SIGNS: Please see below. GENERAL: No distress, obese HEENT: Normocephalic, atraumatic, moist mucous membranes NECK: Supple CARDIOVASCULAR EXAMINATION: S1, S2, no murmurs RESPIRATORY EXAMINATION: Bilateral crackles appreciated ABDOMINAL EXAMINATION: Soft, nontender, nondistended, positive bowel sounds EXTREMITIES: Bilateral lower extremity pitting edema SKIN: No rash NEUROLOGICAL EXAMINATION: Alert and oriented 3, no focal deficits PSYCHIATRIC EXAMINATION: Calm and cooperative LABORATORY DATA, IMAGING STUDIES, MICROBIOLOGY: Please see below. DVT prophylaxis ordered?: Yes ASSESSMENT AND PLAN: 79-year-old female with past medical history of cor pulmonale which arthritis, pulmonary fibrosis, oxygen dependent, diabetes and hypertension admitted for acute exacerbation of pulmonary fibrosis secondary to human rhinovirus. PROBLEMS: 1. Acute exacerbation of pulmonary fibrosis: . Respiratory viral panel positive for human rhinovirus. Supportive care, supplemental oxygen to maintain O2 sats of 90%. Continue doxycycline for now 2. Diabetes mellitus:. Sliding scale insulin with fingersticks before every meal C and at bedtime. 3. Cor pulmonale/right heart failure. Appears volume overloaded, lactate elevated, received IV Lasix, will monitor without IV Lasix for today and diurese accordingly tomorrow. DVT prophylaxis: Lovenox. GI prophylaxis: Not needed VS, I&O, 24H, Fishbone Vital Signs/I&O Vital Signs Date Time Temp Pulse Resp B/P (MAP) Pulse Ox O2 Delivery O2 Flow Rate FiO2 09/03/19 14:00 97.8 74 20 131/75 (93) 92 Nasal Cannula 4.0 I&O- Last 24 Hours up to 6 AM 09/03/19 05:59 Intake Total 600 ml Output Total 1200 ml Balance -600 ml Laboratory Data 24H LABS Laboratory Tests 2 09/02/19 17:17: Blood Gas Bicarbonate Standard 25.9, Arterial Blood pH 7.462H, Arterial Blood Partial Pressure CO2 36.2, Arterial Blood Partial Pressure O2 65.2L, Arterial Blood Total CO2 26.4, Arterial Blood HCO3 25.3, Arterial Blood Base Excess 1.7, Arterial Blood Oxygen Saturation 92.8L 09/02/19 17:58: Immature Granulocyte % (Auto) 0.6, Neutrophils (%) (Auto) 69.9H, Lymphocytes (%) (Auto) 11.5L, Monocytes (%) (Auto) 15.7H, Eosinophils (%) (Auto) 1.7, Basophils (%) (Auto) 0.6, Neutrophils # (Auto) 4.9, Lymphocytes # (Auto) 0.8L, Monocytes # (Auto) 1.1H, Eosinophils # (Auto) 0.1, Basophils # (Auto) 0.0, Nucleated Red Blood Cells % (auto) 0.0, Anion Gap 10, Glomerular Filtration Rate 46.5, Calcium Level 8.2L, Total Creatine Kinase 128, Creatine Kinase MB < 1.0, Creatine Kinase MB Relative Index 0.78, Troponin I 0.07, HF-[id number]-Type Natriuretic Peptide 9590H, Thyroid Stimulating Hormone (TSH) 2.060 09/02/19 18:46: Lactic Acid Level 2.9*H 09/02/19 21:35: Bedside Glucose (Misc Panel) 121H 09/03/19 02:30: Lactic Acid Level 2.5*H, Total Creatine Kinase 183, Creatine Kinase MB 1.2, Creatine Kinase MB Relative Index 0.66, Troponin I 0.04# 09/03/19 06:40: Nucleated Red Blood Cells % (auto) 0.0, Anion Gap 8, Glomerular Filtration Rate 53.1, Lactic Acid Followup at 4 Hours 2.5*H, Calcium Level 8.5L, Magnesium Level 1.5L 09/03/19 12:06: Bedside Glucose (Misc Panel) 225H CBC/BMP Laboratory Tests 09/02/19 17:58 09/03/19 06:40 Microbiology Microbiology 09/02/19 Blood Culture, Received Pending 09/02/19 Respiratory Virus Panel (PCR) ([facility]) - Final, Complete Human Rhinovirus/Enterovirus 09/02/19 Blood Culture, Received Pending ANSELMO ROWE MD Sep 03, 2019 17:18
--- NOTE | 2019-09-03 19:23 | ECHO ---
DATE OF PROCEDURE: 09/03/2019 REFERRING PHYSICIAN: Dr. Yee INDICATION: Dyspnea. Height 150 cm, weight 83 kg. DIMENSIONS: IVS: 0.8 LV: 4.5 LVPW: 1.0 LA: 3.0 Aorta: 3.3 RV: 4.6 Left atrial volume index: 30 Mitral E wave velocity: 37 A wave: 65 E prime septal: 3.6 E prime lateral: 4.7 FINDINGS: The study is of acceptable technical quality considering patient's body habitus. The patient is in sinus rhythm with wide QRS complex. Left ventricle is normal size and overall probably normal systolic function based on fair visualization. I estimate ejection fraction (EF) around 60%. Right ventricle is severely dilated and severely globally hypokinetic. There is flattening of intraventricular septum in both systole and diastole, suggestive of both RV volume and pressure overload. Left atrium is mildly enlarged. Right atrium is severely enlarged. Aortic valve was poorly visualized, but it appears grossly normal. Same applies for mitral valve. Tricuspid valve appears normal. The pulmonic valve was fairly well seen and appears normal as well. Trivial pericardial effusion is noted. Inferior vena cava is severely dilated, and there is no appreciable collapse with respiration suggestive of very high central venous pressure. Aortic root is normal. Aortic arch and abdominal aorta were not well seen. Doppler interrogation of aortic valve reveals no stenosis or insufficiency. Same applies for mitral valve. There is approximately moderate tricuspid insufficiency. Calculated pulmonary artery pressure is in 70s corresponding to severe pulmonary hypertension. Pulmonic valve is functionally competent. Mitral inflow pattern and tissue Doppler imaging of mitral annulus revealed grade 1 diastolic dysfunction. CONCLUSIONS: 1. Study is of a acceptable technical quality. 2. Normal left ventricular (LV) size with preserved LV systolic function and grade 1 diastolic dysfunction. 3. Severely dilated and hypokinetic right ventricle. 4. Very high central venous pressure. 5. Severe pulmonary hypertension. 6. Moderate tricuspid insufficiency. 7. Trivial pericardial effusion. COMMENT: Subacute bacterial endocarditis (SBE) prophylaxis is not recommended.
[2019-09-03 19:43] VITALS: O2SAT 94
[2019-09-03] MEDS: ASPIRIN 81 MG ENTERIC TAB PO SCH (21:36)
[2019-09-03] MEDS: ATORVASTATIN 20 MG TAB PO SCH (21:36)
[2019-09-03 22:00] VITALS: BP 142/68
[2019-09-04] MEDS: LEVALBUTEROL 1.25 MG/0.5 ML CONCENTRATE NEB NEB SCH ×7 (03:43→23:45)
[2019-09-04 06:45] VITALS: BP 111/57
[2019-09-04] MEDS: HumaLOG INSULIN (NovoLOG) PER UNIT SC SCH ×4 (07:30→20:38)
[2019-09-04 07:47] LABS: HEMATOCRIT 34.8 % (36.0-47.0); HEMOGLOBIN 11.2 g/dl (12.0-15.5); MEAN CORPUSCULAR HEMOGLOBIN 30.3 pg (27.0-33.0); MEAN CORPUSCULAR HGB CONC 32.2 g/dl (32.0-36.5); MEAN CORPUSCULAR VOLUME 94.1 fl (80.0-96.0); PLATELET COUNT, AUTOMATED 190 10^3/uL (150-450); WHITE BLOOD COUNT 10.6 10^3/uL (4.0-10.0)
[2019-09-04 08:06] LABS: BLOOD UREA NITROGEN 26 MG/DL (7-18); CALCIUM LEVEL 8.3 MG/DL (8.8-10.2); CARBON DIOXIDE LEVEL 29 MEQ/L (21-32); CHLORIDE LEVEL 99 MEQ/L (98-107); GLOMERULAR FILTRATION RATE > 60.0 (>32); GLUCOSE, FASTING 120 MG/DL (70-100); POTASSIUM SERUM 4.2 MEQ/L (3.5-5.1); SODIUM LEVEL 135 MEQ/L (136-145)
[2019-09-04 08:07] LABS: MAGNESIUM LEVEL 2.6 MG/DL (1.8-2.4)
[2019-09-04] MEDS: LACTOBACILLUS ACIDOPHILUS CAP (BACID) PO SCH ×2 (08:23→17:58)
[2019-09-04] MEDS: ENOXAPARIN 30 MG/0.3 ML SYR (J1650) SC SCH (08:23)
[2019-09-04] MEDS: DOXYCYCLINE HYCLATE 100 MG in D5W MINI-BAG PLUS 100 ML IV SCH ×2 (12:04→22:02)
[2019-09-04] MEDS: CLOTRIMAZOLE 1% TOPICAL CREAM 30GM TOP SCH ×2 (12:53→20:52)
[2019-09-04] MEDS: FUROSEMIDE 40 MG/4 ML VIAL (J1940) IV SCH ×2 (12:53→20:51)
[2019-09-04 15:16] VITALS: BP 110/70
--- NOTE | 2019-09-04 18:53 | IPNPDOC ---
Date Seen The patient was seen on 09/04/19. Progress Note SUBJECTIVE: 79-year-old female with past medical history of cor pulmonale, rheumatoid arthritis, pulmonary fibrosis (oxygen dependent, 4 L by nasal cannula), diabetes and hypertension is admitted for acute exacerbation of pulmonary fibrosis secondary to human rhinovirus. She continues to have dry cough, reports slight improvement in dyspnea since admission, no others complaints at this time. She does report worsening lower extremity edema over the past few days to weeks, treated with IV Lasix, with good urine output. She denies any chest pain, vomiting, abdominal pain or diarrhea. 09/04/2019 Patient reports persistent dyspnea and cough, nonproductive, unable to ambulate due to dyspnea on exertion, significant weight worsened baseline, refused work with PT due to dyspnea. She denies any chest pain, vomiting, nontender diarrhea. 10 point review of system was negative except for above PHYSICAL EXAMINATION: VITAL SIGNS: Please see below. GENERAL: No distress, obese HEENT: Normocephalic, atraumatic, moist mucous membranes NECK: Supple CARDIOVASCULAR EXAMINATION: S1, S2, no murmurs RESPIRATORY EXAMINATION: Bilateral crackles appreciated ABDOMINAL EXAMINATION: Soft, nontender, nondistended, positive bowel sounds EXTREMITIES: Bilateral lower extremity pitting edema SKIN: No rash NEUROLOGICAL EXAMINATION: Alert and oriented 3, no focal deficits PSYCHIATRIC EXAMINATION: Calm and cooperative LABORATORY DATA, IMAGING STUDIES, MICROBIOLOGY: Please see below. DVT prophylaxis ordered?: Yes ASSESSMENT AND PLAN: 79-year-old female with past medical history of cor pulmonale which arthritis, pulmonary fibrosis, oxygen dependent, diabetes and hypertension admitted for acute exacerbation of pulmonary fibrosis secondary to human rhinovirus. PROBLEMS: 1. Acute exacerbation of pulmonary fibrosis: Respiratory viral panel positive for human rhinovirus. Supportive care, supplemental oxygen to maintain O2 sats of 90%. Continue doxycycline for now Will provide diuresis to assist with dyspnea and volume status, would like to avoid steroids as benefit is limited in pulmonary fibrosis, if continues to worsen by tomorrow, will consider a short trial of steroids. 2. Diabetes mellitus:. Sliding scale insulin with fingersticks before every meal C and at bedtime. 3. Cor pulmonale/right heart failure. volume overloaded, restart IV Lasix 40 mg every 8 hours. DVT prophylaxis: Lovenox. GI prophylaxis: Not needed VS, I&O, 24H, Fishbone Vital Signs/I&O Vital Signs Date Time Temp Pulse Resp B/P (MAP) Pulse Ox O2 Delivery O2 Flow Rate FiO2 09/04/19 15:16 97.1 65 18 110/70 (83) 96 Nasal Cannula 4.0 I&O- Last 24 Hours up to 6 AM 09/04/19 06:00 Intake Total 1200 ml Output Total 550 ml Balance 650 ml Laboratory Data 24H LABS Laboratory Tests 2 09/03/19 21:31: Bedside Glucose (Misc Panel) 174H 09/04/19 06:39: Bedside Glucose (Misc Panel) 121H 09/04/19 07:21: Nucleated Red Blood Cells % (auto) 0.0, Anion Gap 7L, Glomerular Filtration Rate > 60.0, Calcium Level 8.3L, Magnesium Level 2.6H 09/04/19 12:01: Bedside Glucose (Misc Panel) 110 09/04/19 17:07: Bedside Glucose (Misc Panel) 128H CBC/BMP Laboratory Tests 09/04/19 07:21 Microbiology Microbiology 09/02/19 Blood Culture - Preliminary, Resulted No growth after 24 hours . All specim... 09/02/19 Respiratory Virus Panel (PCR) ([facility]) - Final, Complete Human Rhinovirus/Enterovirus 09/02/19 Blood Culture - Preliminary, Resulted No Growth after 48 hours. All Specime... ANSELMO ROWE MD Sep 04, 2019 18:53
[2019-09-04 20:00] VITALS: BP 126/54
[2019-09-04 20:06] VITALS: O2SAT 94
[2019-09-04] MEDS: ASPIRIN 81 MG ENTERIC TAB PO SCH (20:51)
[2019-09-04] MEDS: ATORVASTATIN 20 MG TAB PO SCH (20:51)
[2019-09-05] MEDS: FUROSEMIDE 40 MG/4 ML VIAL (J1940) IV SCH ×3 (04:16→20:26)
[2019-09-05] MEDS: LEVALBUTEROL 1.25 MG/0.5 ML CONCENTRATE NEB NEB SCH ×5 (04:39→20:05)
[2019-09-05 06:39] VITALS: BP 122/58
[2019-09-05 06:44] LABS: HEMATOCRIT 35.9 % (36.0-47.0); HEMOGLOBIN 11.4 g/dl (12.0-15.5); MEAN CORPUSCULAR HEMOGLOBIN 30.6 pg (27.0-33.0); MEAN CORPUSCULAR HGB CONC 31.8 g/dl (32.0-36.5); MEAN CORPUSCULAR VOLUME 96.5 fl (80.0-96.0); PLATELET COUNT, AUTOMATED 180 10^3/uL (150-450); RED BLOOD COUNT 3.72 10^6/uL (4.00-5.40); WHITE BLOOD COUNT 7.6 10^3/uL (4.0-10.0)
[2019-09-05 07:09] LABS: ALBUMIN 3.4 GM/DL (3.2-5.2); BILIRUBIN,TOTAL 0.8 MG/DL (0.2-1.0); CALCIUM LEVEL 8.3 MG/DL (8.8-10.2); CREATININE FOR GFR 0.98 MG/DL (0.55-1.30); GLOMERULAR FILTRATION RATE 58.1 (>32); PHOSPHORUS LEVEL 2.4 MG/DL (2.5-4.9); POTASSIUM SERUM 3.3 MEQ/L (3.5-5.1); TOTAL PROTEIN 6.8 GM/DL (6.4-8.2)
[2019-09-05] MEDS: HumaLOG INSULIN (NovoLOG) PER UNIT SC SCH ×4 (07:30→20:49)
[2019-09-05] MEDS: ENOXAPARIN 30 MG/0.3 ML SYR (J1650) SC SCH (09:00)
[2019-09-05] MEDS: LACTOBACILLUS ACIDOPHILUS CAP (BACID) PO SCH ×2 (09:00→16:36)
[2019-09-05] MEDS: CLOTRIMAZOLE 1% TOPICAL CREAM 30GM TOP SCH ×2 (09:01→20:49)
[2019-09-05] MEDS: POTASSIUM CHLORIDE 10 MEQ SR TABLET PO SCH ×4 (09:13→20:26)
[2019-09-05] MEDS: DOXYCYCLINE HYCLATE 100 MG in D5W MINI-BAG PLUS 100 ML IV SCH ×2 (10:51→11:00)
[2019-09-05] MEDS: K-PHOS NEUTRAL 250MG TABLET (SOD.PHOSPHATE/POT.PHOSPHATE) PO SCH ×2 (12:16→16:00)
[2019-09-05] MEDS: DOXYCYCLINE HYCLATE 100 MG TAB PO SCH ×2 (12:16→20:26)
[2019-09-05 16:37] VITALS: BP 133/75
--- NOTE | 2019-09-05 16:59 | IPNPDOC ---
Date Seen The patient was seen on 09/05/19. Progress Note SUBJECTIVE: 79-year-old female with past medical history of cor pulmonale, rheumatoid arthritis, pulmonary fibrosis (oxygen dependent, 4 L by nasal cannula), diabetes and hypertension is admitted for acute exacerbation of pulmonary fibrosis secondary to human rhinovirus. She continues to have dry cough, reports slight improvement in dyspnea since admission, no others complaints at this time. She does report worsening lower extremity edema over the past few days to weeks, treated with IV Lasix, with good urine output. She denies any chest pain, vomiting, abdominal pain or diarrhea. 09/04/2019 Patient reports persistent dyspnea and cough, nonproductive, unable to ambulate due to dyspnea on exertion, significant weight worsened baseline, refused work with PT due to dyspnea. She denies any chest pain, vomiting, nontender diarrhea. 09/05/2019 Patient worked with physical therapy today, only able to ambulate inside the room before developing significant dyspnea, reports improvement from yesterday after restarting Lasix. She has had significant urine output since yesterday, continues to remain on 4 L of oxygen via nasal cannula. 10 point review of system was negative except for above PHYSICAL EXAMINATION: VITAL SIGNS: Please see below. GENERAL: No distress, obese HEENT: Normocephalic, atraumatic, moist mucous membranes NECK: Supple CARDIOVASCULAR EXAMINATION: S1, S2, no murmurs RESPIRATORY EXAMINATION: Bilateral crackles appreciated ABDOMINAL EXAMINATION: Soft, nontender, nondistended, positive bowel sounds EXTREMITIES: Bilateral lower extremity pitting edema SKIN: No rash NEUROLOGICAL EXAMINATION: Alert and oriented 3, no focal deficits PSYCHIATRIC EXAMINATION: Calm and cooperative LABORATORY DATA, IMAGING STUDIES, MICROBIOLOGY: Please see below. DVT prophylaxis ordered?: Yes ASSESSMENT AND PLAN: 79-year-old female with past medical history of cor pulmonale which arthritis, pulmonary fibrosis, oxygen dependent, diabetes and hypertension admitted for acute exacerbation of pulmonary fibrosis secondary to human rhinovirus. PROBLEMS: 1. Acute exacerbation of pulmonary fibrosis: Respiratory viral panel positive for human rhinovirus. Supportive care, supplemental oxygen to maintain O2 sats of 90%. Continue doxycycline Improvement with diuresis, continue physical therapy, continue IV Lasix 40 mg every 8 hours for now, potassium supplementation. 2. Diabetes mellitus:. Sliding scale insulin with fingersticks before every meal C and at bedtime. 3. Cor pulmonale/right heart failure. volume overloaded, restart IV Lasix 40 mg every 8 hours. DVT prophylaxis: Lovenox. GI prophylaxis: Not needed VS, I&O, 24H, Fishbone Vital Signs/I&O Vital Signs Date Time Temp Pulse Resp B/P (MAP) Pulse Ox O2 Delivery O2 Flow Rate FiO2 09/05/19 16:37 97.8 96 18 133/75 (94) 90 Nasal Cannula 4.0 I&O- Last 24 Hours up to 6 AM 09/05/19 06:00 Intake Total 980 ml Balance 980 ml Laboratory Data 24H LABS Laboratory Tests 2 09/04/19 17:07: Bedside Glucose (Misc Panel) 128H 09/04/19 20:07: Bedside Glucose (Misc Panel) 118H 09/05/19 06:24: Nucleated Red Blood Cells % (auto) 0.0, Anion Gap 7L, Glomerular Filtration Rate 58.1, Calcium Level 8.3L, Phosphorus Level 2.4L, Magnesium Level 2.0, Total Bilirubin 0.8, Aspartate Amino Transf (AST/SGOT) 35, Alanine Aminotransferase (ALT/SGPT) 25, Alkaline Phosphatase 73, Total Protein 6.8, Albumin 3.4, Albumin/Globulin Ratio 1.00 09/05/19 12:18: Bedside Glucose (Misc Panel) 115H 09/05/19 16:21: Bedside Glucose (Misc Panel) 114H CBC/BMP Laboratory Tests 09/05/19 06:24 Microbiology Microbiology 09/02/19 Blood Culture - Preliminary, Resulted No Growth after 48 hours. All Specime... 09/02/19 Respiratory Virus Panel (PCR) ([facility]) - Final, Complete Human Rhinovirus/Enterovirus 09/02/19 Blood Culture - Preliminary, Resulted No Growth after 48 hours. All Specime... ANSELMO ROWE MD Sep 05, 2019 16:58
[2019-09-05 19:55] VITALS: BP 122/81
[2019-09-05] MEDS: ATORVASTATIN 20 MG TAB PO SCH (20:26)
[2019-09-05] MEDS: ASPIRIN 81 MG ENTERIC TAB PO SCH (20:26)
[2019-09-06] MEDS: FUROSEMIDE 40 MG/4 ML VIAL (J1940) IV SCH ×3 (04:04→21:20)
[2019-09-06 07:05] LABS: HEMATOCRIT 35.4 % (36.0-47.0); HEMOGLOBIN 11.3 g/dl (12.0-15.5); MEAN CORPUSCULAR HEMOGLOBIN 30.4 pg (27.0-33.0); MEAN CORPUSCULAR HGB CONC 31.9 g/dl (32.0-36.5); MEAN CORPUSCULAR VOLUME 95.2 fl (80.0-96.0); PLATELET COUNT, AUTOMATED 185 10^3/uL (150-450); RED BLOOD COUNT 3.72 10^6/uL (4.00-5.40)
[2019-09-06] MEDS: HumaLOG INSULIN (NovoLOG) PER UNIT SC SCH ×4 (07:30→21:00)
[2019-09-06 07:41] LABS: CALCIUM LEVEL 8.4 MG/DL (8.8-10.2); CREATININE FOR GFR 0.99 MG/DL (0.55-1.30); GLOMERULAR FILTRATION RATE 57.5 (>32); MAGNESIUM LEVEL 1.7 MG/DL (1.8-2.4); POTASSIUM SERUM 4.6 MEQ/L (3.5-5.1)
[2019-09-06] MEDS: LEVALBUTEROL 1.25 MG/0.5 ML CONCENTRATE NEB NEB SCH ×6 (08:00→23:53)
[2019-09-06 08:26] LABS: PHOSPHORUS LEVEL 2.6 MG/DL (2.5-4.9)
[2019-09-06] MEDS: DOXYCYCLINE HYCLATE 100 MG TAB PO SCH ×2 (09:39→21:21)
[2019-09-06] MEDS: LACTOBACILLUS ACIDOPHILUS CAP (BACID) PO SCH ×2 (09:39→17:00)
[2019-09-06] MEDS: POTASSIUM CHLORIDE 10 MEQ SR TABLET PO SCH ×4 (09:39→21:21)
[2019-09-06] MEDS: ENOXAPARIN 30 MG/0.3 ML SYR (J1650) SC SCH (09:40)
[2019-09-06] MEDS: CLOTRIMAZOLE 1% TOPICAL CREAM 30GM TOP SCH ×2 (09:40→21:00)
[2019-09-06] MEDS: MAG SULF 1GM/100ML (MAG RUN) 1 GM in IV 1 EA IV SCH ×2 (09:41→11:03)
[2019-09-06 14:00] VITALS: BP_SYST 148; BP_SYST 182; BP_DIAS 81; BP_DIAS 82
--- NOTE | 2019-09-06 17:11 | IPNPDOC ---
Date Seen The patient was seen on 09/06/19. Progress Note SUBJECTIVE: 79-year-old female with past medical history of cor pulmonale, rheumatoid arthritis, pulmonary fibrosis (oxygen dependent, 4 L by nasal cannula), diabetes and hypertension is admitted for acute exacerbation of pulmonary fibrosis secondary to human rhinovirus. She continues to have dry cough, reports slight improvement in dyspnea since admission, no others complaints at this time. She does report worsening lower extremity edema over the past few days to weeks, treated with IV Lasix, with good urine output. She denies any chest pain, vomiting, abdominal pain or diarrhea. 09/04/2019 Patient reports persistent dyspnea and cough, nonproductive, unable to ambulate due to dyspnea on exertion, significant weight worsened baseline, refused work with PT due to dyspnea. She denies any chest pain, vomiting, nontender diarrhea. 09/05/2019 Patient worked with physical therapy today, only able to ambulate inside the room before developing significant dyspnea, reports improvement from yesterday after restarting Lasix. She has had significant urine output since yesterday, continues to remain on 4 L of oxygen via nasal cannula. 09/06/2019 Patient reports improvement in dyspnea, still not close to baseline, working with physical therapy who recommended home with home services, having good urine output with IV Lasix. 10 point review of system was negative except for above PHYSICAL EXAMINATION: VITAL SIGNS: Please see below. GENERAL: No distress, obese HEENT: Normocephalic, atraumatic, moist mucous membranes NECK: Supple CARDIOVASCULAR EXAMINATION: S1, S2, no murmurs RESPIRATORY EXAMINATION: Bilateral crackles appreciated ABDOMINAL EXAMINATION: Soft, nontender, nondistended, positive bowel sounds EXTREMITIES: Bilateral lower extremity pitting edema SKIN: No rash NEUROLOGICAL EXAMINATION: Alert and oriented 3, no focal deficits PSYCHIATRIC EXAMINATION: Calm and cooperative LABORATORY DATA, IMAGING STUDIES, MICROBIOLOGY: Please see below. DVT prophylaxis ordered?: Yes ASSESSMENT AND PLAN: 79-year-old female with past medical history of cor pulmonale which arthritis, pulmonary fibrosis, oxygen dependent, diabetes and hypertension admitted for acute exacerbation of pulmonary fibrosis secondary to human rhinovirus. PROBLEMS: 1. Acute exacerbation of pulmonary fibrosis: Respiratory viral panel positive for human rhinovirus. Supportive care, supplemental oxygen to maintain O2 sats of 90%. Continue doxycycline Improvement with diuresis, continue physical therapy, continue IV Lasix 40 mg every 8 hours for now, potassium supplementation. 2. Diabetes mellitus:. Sliding scale insulin with fingersticks before every meal C and at bedtime. 3. Cor pulmonale/right heart failure. volume overloaded, continue diuresis DVT prophylaxis: Lovenox. GI prophylaxis: Not needed VS, I&O, 24H, Fishbone Vital Signs/I&O Vital Signs Date Time Temp Pulse Resp B/P (MAP) Pulse Ox O2 Delivery O2 Flow Rate FiO2 09/06/19 14:45 4.0 09/06/19 14:00 98.0 108 19 182/81 (114) 82 09/05/19 20:05 Nasal Cannula I&O- Last 24 Hours up to 6 AM 09/06/19 06:00 Intake Total 1440 ml Output Total 2700 ml Balance -1260 ml Laboratory Data 24H LABS Laboratory Tests 2 09/05/19 20:13: Bedside Glucose (Misc Panel) 126H 09/06/19 06:41: Nucleated Red Blood Cells % (auto) 0.0, Anion Gap 5L, Glomerular Filtration Rate 57.5, Calcium Level 8.4L, Phosphorus Level 2.6, Magnesium Level 1.7L 09/06/19 11:41: Bedside Glucose (Misc Panel) 115H 09/06/19 16:43: Bedside Glucose (Misc Panel) 105 CBC/BMP Laboratory Tests 09/06/19 06:41 Microbiology Microbiology 09/02/19 Blood Culture - Preliminary, Resulted No Growth after 72 hours. All specime... 09/02/19 Respiratory Virus Panel (PCR) ([facility]) - Final, Complete Human Rhinovirus/Enterovirus 09/02/19 Blood Culture - Preliminary, Resulted No Growth after 72 hours. All specime... ANSELMO ROWE MD Sep 06, 2019 17:11
[2019-09-06 18:00] VITALS: BP 133/81
[2019-09-06] MEDS: ASPIRIN 81 MG ENTERIC TAB PO SCH (21:21)
[2019-09-06] MEDS: ATORVASTATIN 20 MG TAB PO SCH (21:21)
[2019-09-06 22:00] VITALS: BP 161/96
[2019-09-07] MEDS: FUROSEMIDE 40 MG/4 ML VIAL (J1940) IV SCH ×2 (04:30→12:32)
[2019-09-07 06:00] VITALS: BP 148/88
[2019-09-07 07:15] LABS: CALCIUM LEVEL 8.9 MG/DL (8.8-10.2); CREATININE FOR GFR 1.03 MG/DL (0.55-1.30); GLOMERULAR FILTRATION RATE 54.9 (>32); MAGNESIUM LEVEL 2.3 MG/DL (1.8-2.4); POTASSIUM SERUM 4.8 MEQ/L (3.5-5.1)
[2019-09-07] MEDS: LEVALBUTEROL 1.25 MG/0.5 ML CONCENTRATE NEB NEB SCH ×2 (07:23→12:00)
[2019-09-07 08:01] LABS: HEMATOCRIT 36.2 % (36.0-47.0); HEMOGLOBIN 11.6 g/dl (12.0-15.5); MEAN CORPUSCULAR HEMOGLOBIN 30.3 pg (27.0-33.0); MEAN CORPUSCULAR VOLUME 94.5 fl (80.0-96.0); PLATELET COUNT, AUTOMATED 210 10^3/uL (150-450); RED BLOOD COUNT 3.83 10^6/uL (4.00-5.40); WHITE BLOOD COUNT 6.9 10^3/uL (4.0-10.0)
[2019-09-07] MEDS: LACTOBACILLUS ACIDOPHILUS CAP (BACID) PO SCH (08:12)
[2019-09-07] MEDS: DOXYCYCLINE HYCLATE 100 MG TAB PO SCH (08:12)
[2019-09-07] MEDS: POTASSIUM CHLORIDE 10 MEQ SR TABLET PO SCH (08:12)
[2019-09-07] MEDS: HumaLOG INSULIN (NovoLOG) PER UNIT SC SCH ×2 (08:13→12:00)
[2019-09-07] MEDS: CLOTRIMAZOLE 1% TOPICAL CREAM 30GM TOP SCH (08:13)
[2019-09-07] MEDS: ENOXAPARIN 30 MG/0.3 ML SYR (J1650) SC SCH (08:13)
--- NOTE | 2019-09-07 11:41 | DS.PDOC ---
Discharge Summary General Date of Admission Sep 02, 2019 at 20:31 Date of Discharge 09/07/2019 Attending Physician: ANSELMO ROWE MD Discharge Summary PROCEDURES PERFORMED DURING STAY: None. ADMITTING DIAGNOSES: 1. Acute exacerbation of pulmonary fibrosis. DISCHARGE DIAGNOSES: 1. Acute exacerbation of pulmonary fibrosis. COMPLICATIONS/CHIEF COMPLAINT: Pulmonary Fibrosis. HISTORY OF PRESENT ILLNESS: 79-year-old female with past medical history of poorly fibrosis, CHF, hypertension or diabetes mellitus, was admitted for acute exacerbation of pulmonary fibrosis due to human rhinovirus. Her hospitalization was also complicated by acute on chronic CHF, she was treated with aggressive IV Lasix, with good urine output. She has been working with physical therapy throughout her hospitalization, who recommend discharge home with services. Patient has severe pulmonary fibrosis, at baseline, she is dependent on 4 L of oxygen via nasal cannula, currently satting well on 4 L and ambulating. Patient advised that given her chronic lung disease it may take her longer than usual to recover from this viral illness, as long as she is improving she is stable for discharge home with further improvement in the outpatient setting. Patient advised to return to emergency room if she develops fever, requires additional supplemental oxygen or symptoms are not improving over the next week or two. HOSPITAL COURSE: As above. DISCHARGE MEDICATIONS: Please see below. ALLERGIES: Please see below. PHYSICAL EXAMINATION: VITAL SIGNS: Please see below. GENERAL: No distress HEENT: Normocephalic, atraumatic, moist mucous membranes NECK: Supple CARDIOVASCULAR EXAMINATION: S1, S2, no murmurs RESPIRATORY EXAMINATION: Scattered rhonchi, no wheezing ABDOMINAL EXAMINATION: Soft, nontender, nondistended, positive bowel sounds EXTREMITIES: Bilateral lower extremity pitting edema, significantly improved SKIN: No rash NEUROLOGICAL EXAMINATION: Alert and oriented 3, no focal deficits PSYCHIATRIC EXAMINATION: Calm and cooperative LABORATORY DATA: Please see below. IMAGING: Consistent with volume overload PROGNOSIS: Guarded ACTIVITY: As tolerated. DIET: Cardiac with consistent carbs DISCHARGE PLAN: Patient will follow with PCP and pay station attendant in 1-2 weeks DISPOSITION: Home with services DISCHARGE INSTRUCTIONS: 1. As above. DISCHARGE CONDITION: Stable. TIME SPENT ON DISCHARGE: Greater than 36 minutes. Vital Signs/I&Os Vital Signs Date Time Temp Pulse Resp B/P (MAP) Pulse Ox O2 Delivery O2 Flow Rate FiO2 09/07/19 09:00 4.0 09/07/19 06:00 97.6 95 20 148/88 (108) 89 Nasal Cannula I&O- Last 24 Hours up to 6 AM 09/07/19 05:59 Intake Total 650 ml Output Total 1650 ml Balance -1000 ml Laboratory Data Labs 24H Laboratory Tests 2 09/06/19 11:41: Bedside Glucose (Misc Panel) 115H 09/06/19 16:43: Bedside Glucose (Misc Panel) 105 09/06/19 21:38: Bedside Glucose (Misc Panel) 143H 09/07/19 06:30: Anion Gap 7L, Glomerular Filtration Rate 54.9, Calcium Level 8.9, Magnesium Level 2.3 09/07/19 07:31: Nucleated Red Blood Cells % (auto) 0.0 CBC/BMP Laboratory Tests 09/07/19 06:30 09/07/19 07:31 FSBS Laboratory Tests Test 09/06/19 11:41 09/06/19 16:43 09/06/19 21:38 Range/Units Bedside Glucose (Misc Panel) 115 105 143 83-110 MG/DL Microbiology Microbiology 09/02/19 Blood Culture - Preliminary, Resulted No Growth after 72 hours. All specime... 09/02/19 Respiratory Virus Panel (PCR) ([facility]) - Final, Complete Human Rhinovirus/Enterovirus 09/02/19 Blood Culture - Preliminary, Resulted No Growth after 72 hours. All specime... Discharge Medications Scheduled Amlodipine Besylate (Amlodipine Besylate) 10 Mg Tablet, 10 MG PO DAILY, (Reported) Aspirin (Aspirin EC) 81 Mg Tab, 81 MG PO QHS, (Reported) Atorvastatin Calcium (Atorvastatin Calcium) 20 Mg Tab, 20 MG PO QHS, (Reported) Benazepril HCl (Benazepril HCl) 20 Mg Tab, 20 MG PO DAILY, (Reported) Ergocalciferol (Vitamin D2) (Drisdol) 50,000 Unit Capsule, 50,000 UNIT PO 1XWK, (Reported) MONDAYS Furosemide (Furosemide) 40 Mg Tablet, 40 MG PO DAILY, (Reported) Metformin HCl (Metformin HCl) 1,000 Mg Tab, 1,000 MG PO BID, (Reported) Metoprolol Succinate (Metoprolol Succinate) 100 Mg Tab, 100 MG PO DAILY, (Reported) Omeprazole (Omeprazole) 40 Mg Capsule.dr, 40 MG PO DAILY, (Reported) Allergies Coded Allergies: Sulfa (Sulfonamide Antibiotics) (Verified Allergy, Unknown, swelling, 05/19/19) ANSELMO ROWE MD Sep 07, 2019 11:41
== END 2019-09-07 14:40 | disposition home health service (06) | DRG 196 ==
LOC: EDBD 16:52 → EDSEX 16:52 → M ED 16:52 → M ED INP 20:31 → M MS5PR 22:25 → M MS4PR 09-03 21:48 → M MSPAV 09-06 14:33
PROVIDERS: ADMIT General Practice; ATTEND Internal Medicine
DX: J84.10 Pulmonary fibrosis, unspecified (principal); I50.33 Acute on chronic diastolic (congestive) heart failure; J96.11 Chronic respiratory failure with hypoxia; B97.89 Other viral agents as the cause of diseases classified elsewhere; I50.810 Right heart failure, unspecified; I27.29 Other secondary pulmonary hypertension; E78.5 Hyperlipidemia, unspecified; K76.0 Fatty (change of) liver, not elsewhere classified; E11.9 Type 2 diabetes mellitus without complications; M19.90 Unspecified osteoarthritis, unspecified site; I11.0 Hypertensive heart disease with heart failure; M06.9 Rheumatoid arthritis, unspecified; R91.8 Other nonspecific abnormal finding of lung field; Z96.641 Presence of right artificial hip joint; Z96.642 Presence of left artificial hip joint; Z79.82 Long term (current) use of aspirin; Z79.84 Long term (current) use of oral hypoglycemic drugs; Z79.899 Other long term (current) drug therapy; Z88.2 Allergy status to sulfonamides; Z99.81 Dependence on supplemental oxygen; Z91.11 Patient's noncompliance with dietary regimen

== ENCOUNTER → 2019-09-17 | Outpatient (REF) | payer MEDICARE ==
[~2019-09-17] MED LIST changes: +OMEP-221 PO
== END ==
LOC: M LAB REF 17:08
PROVIDERS: ATTEND Internal Medicine Pulmonary Disease
DX: J84.10 Pulmonary fibrosis, unspecified (principal)

== ENCOUNTER → 2019-09-18 | Outpatient (REF) | payer MEDICARE ==
[2019-09-18 14:05] LABS: ALBUMIN 3.6 GM/DL (3.2-5.2); CALCIUM LEVEL 9.5 MG/DL (8.8-10.2); CREATININE FOR GFR 1.02 MG/DL (0.55-1.30); GLOMERULAR FILTRATION RATE 55.5 (>32); POTASSIUM SERUM 4.3 MEQ/L (3.5-5.1); TOTAL PROTEIN 7.1 GM/DL (6.4-8.2)
== END ==
LOC: M SFHCPLAZ 11:26
PROVIDERS: ATTEND Nurse Practitioner Family
DX: E11.9 Type 2 diabetes mellitus without complications (principal); Z74.09 Other reduced mobility

== ENCOUNTER 2019-10-11 15:27 | Emergency (ER) | payer MEDICARE ==
[2019-10-11] MEDS ORDERED: SODIUM BICARBONATE 4.2% INJ 10 ML SYRINGE ONE (15:28)
[2019-10-11] MEDS ORDERED: ETOMIDATE INJ 20MG/10ML VIAL ONE (15:28)
[2019-10-11] MEDS ORDERED: SUCCINYLCHOLINE 100 MG/5 ML SYRINGE (J0330) ONE (15:28)
[2019-10-11] MEDS ORDERED: SODIUM BICARBONATE 8.4% INJ 50 ML SYRINGE ONE (15:28)
[2019-10-11] MEDS ORDERED: EPINEPHrine 1MG/10ML SYRINGE 1.5IN ONE (15:28)
[2019-10-11] MEDS ORDERED: FUROSEMIDE 40 MG/4 ML VIAL (J1940) IV ONE (16:45)
[2019-10-11] MEDS ORDERED: LEXA5TAB13 PO (16:51)
[2019-10-11] MEDS ORDERED: KETO2CR TOP (16:51)
[2019-10-11] MEDS ORDERED: METO25TA PO (16:51)
--- NOTE | 2019-10-11 17:53 | REPVR ---
PROCEDURE INFORMATION: Exam: CT Head Without Contrast Exam date and time: 10/11/2019 5:33 PM Age: 79 years old Clinical history: Syncope and collapse TECHNIQUE: Imaging protocol: Computed tomography of the head without contrast. Axial and coronal reformatted images were created and reviewed. Radiation optimization: All CT scans at this facility use at least one of these dose optimization techniques: automated exposure control; mA and/or kV adjustment per patient size (includes targeted exams where dose is matched to clinical indication); or iterative reconstruction. COMPARISON: No relevant prior studies available. FINDINGS: Brain: Subtle, patchy areas of hypoattenuation in the periventricular and subcortical white matter, nonspecific but suggestive of mild chronic small vessel ischemic disease. No CT evidence of acute intracranial hemorrhage or acute territorial infarction. No significant mass effect or midline shift. Basal cisterns patent. Ventricles: Prominence of the cortical sulci, cisterns and ventricular system, consistent with cerebral and cerebellar volume loss. Bones/joints: No acute osseous abnormality. Sinuses: Minimal ethmoid mucosal thickening. Mastoid air cells: Grossly unremarkable. Soft tissues: Grossly unremarkable. Vasculature: Mild calcific atherosclerotic disease in the cavernous internal carotid arteries. IMPRESSION: 1. No CT evidence of acute intracranial pathology. 2. Additional findings, as above. Electronically signed by: Camacho Moore On 10/11/2019 17:53:37 PM
[2019-10-11 18:19] LABS: BASO % 0.3 % (0.0-1.0); EOS % 0.2 % (0.0-3.0); HEMATOCRIT 38.1 % (36.0-47.0); HEMOGLOBIN 11.6 g/dl (12.0-15.5); LYMPH # 0.8 10^3/uL (1.5-5.0); LYMPH % 7.1 % (24.0-44.0); MEAN CORPUSCULAR HEMOGLOBIN 28.7 pg (27.0-33.0); MEAN CORPUSCULAR HGB CONC 30.4 g/dl (32.0-36.5); MEAN CORPUSCULAR VOLUME 94.3 fl (80.0-96.0); MONO # 0.8 10^3/uL (0.0-0.8); MONO % 7.3 % (0.0-5.0); NEUTROPHILS # 9.2 10^3/uL (1.5-8.5); NEUTROPHILS % 84.4 % (36.0-66.0); PLATELET COUNT, AUTOMATED 186 10^3/uL (150-450); RED BLOOD COUNT 4.04 10^6/uL (4.00-5.40); WHITE BLOOD COUNT 10.9 10^3/uL (4.0-10.0)
[2019-10-11 18:30] VITALS: BP 102/64
--- NOTE | 2019-10-11 18:43 | REP ---
Portable chest x-ray: Single view. History: Dyspnea. Comparison chest x-ray: September 02, 2019. Findings: Cardiomegaly is observed unchanged. Mild bibasilar interstitial pattern is seen. Pulmonary vasculature is cephalized. Monitoring electrodes and oxygen delivery tubing are seen. Impression: Cardiomegaly. Bibasilar interstitial fibrosis pattern. No evidence of pleural effusion or pulmonary edema. Some vascular congestion seen. Electronically Signed by Aime Manzano MD 10/11/2019 08:03 P
[2019-10-11] MEDS ORDERED: ONDANSETRON 4MG/2ML VIAL (J2405) IV ONE (18:45)
[2019-10-11 18:47] LABS: ALBUMIN 3.2 GM/DL (3.2-5.2); BILIRUBIN,TOTAL 0.9 MG/DL (0.2-1.0); CALCIUM LEVEL 8.8 MG/DL (8.8-10.2); CK-MB VALUE MASS 2.8 NG/ML (<3.6); CREATININE FOR GFR 1.24 MG/DL (0.55-1.30); GLOMERULAR FILTRATION RATE 44.3 (>32); POTASSIUM SERUM 4.4 MEQ/L (3.5-5.1); TOTAL PROTEIN 6.6 GM/DL (6.4-8.2); TROPONIN I 0.23 NG/ML (< 0.10)
[2019-10-11] MEDS ORDERED: FUROSEMIDE 100 MG/10 ML VIAL (J1940) As Ordered ONE (19:13)
--- NOTE | 2019-10-11 19:59 | REP ---
Portable chest x-ray: Single view. 07:17 p.m. film. History: Intubation. Comparison study October 11, 2019. 04:56 p.m. film. Findings: Endotracheal tube is seen in good position at the level of the transverse aorta. EKG electrodes are seen. There is a severe diffuse pulmonary edema pattern in the lung david which is a new finding. Cardiomegaly is again observed unchanged. Impression: Cardiomegaly. Severe diffuse pulmonary edema pattern. Endotracheal tube in good position. Electronically Signed by Aime Manzano MD 10/11/2019 07:50 P
--- NOTE | 2019-10-11 20:20 | ECGEPIP ---
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 Order Number: [id number] Reading MD: Lexi Fletcher Measurements Intervals [place] Rate: 114 P: 213 MD: 201 QRS: 52 QRSD: 94 T: -38 QT: 377 QTc: 520 Interpretive Statements ECTOPIC ATRIAL TACHYCARDIA WITH OCCASIONAL SUPRAVENTRICULAR PREMATURE COMPLEXES INCOMPLETE RIGHT BUNDLE BRANCH BLOCK NONSPECIFIC ST & T-WAVE ABNORMALITY Electronically Signed on 10-11-2019 20:20:38 EST by Lexi Fletcher
== END 2019-10-11 21:20 | disposition expired ==
LOC: M ED 15:27
DX: I46.9 Cardiac arrest, cause unspecified (principal); I50.1 Left ventricular failure, unspecified; E11.9 Type 2 diabetes mellitus without complications; E78.5 Hyperlipidemia, unspecified; K21.9 Gastro-esophageal reflux disease without esophagitis; I27.20 Pulmonary hypertension, unspecified; Z99.81 Dependence on supplemental oxygen; Z79.899 Other long term (current) drug therapy; Z79.84 Long term (current) use of oral hypoglycemic drugs; Z79.82 Long term (current) use of aspirin; Z88.1 Allergy status to other antibiotic agents; Z88.2 Allergy status to sulfonamides
CPT/HCPCS: 31500; 36415; 70450; 71045; 80053; 82550; 82553; 83880; 84484; 85025; 93005; 93041; 94760; 96374; 96375; 99285; J0330; J1940; J2405